=== PATIENT | female | born 1965 | race Caucasian/White ===

== ENCOUNTER → 2016-12-25 | Outpatient (CLI) | payer BC ==
[~2016-12-25] MED LIST: AMOX875T PO; ESCI10TA17 PO
--- NOTE | 2016-12-25 11:53 | DIAGNOSTIC IMAGING REPORT ---
CHEST CT WITHOUT CONTRAST CT DOSE: 378.76 mGycm HISTORY: Follow-up pulmonary nodule. TECHNIQUE: Multiaxial CT images of the chest were performed without contrast. COMPARISON: Chest CT 07/12/2016. FINDINGS: The central airways are patent. No pleural effusions. No pneumothorax. Stable 6 mm nodular density within the right middle lobe on image 178. Therefore, this demonstrates greater than 2 year stability and is considered to be benign. Bibasilar linear densities favor subsegmental atelectasis are scarring. No pneumothorax. No pleural effusions. Mild emphysema. Faint groundglass densities within the right upper lobe posteriorly and superior segments of the bilateral lower lobes may be due to mild dependent change. The visualized liver, spleen, and adrenal glands are unremarkable. Small fat-containing left-sided Bochdalek hernia. No mediastinal or hilar lymphadenopathy. The heart is normal in size. Stable 12 mm low-density lesion within the left breast. The long-term stability favors a benign lesion. IMPRESSION: 1. Stable 6 mm nodular density within the right middle lobe. This demonstrates greater than 2 year stability and is considered to be benign. 2. Stable 12 mm low-density nodule within the left breast. This is also likely benign given the long-term stability. Electronically signed by: Tobi Cancino M.D. 12/25/2016 11:51 AM Dictated Date/Time: 12/25/2016 11:43 AM
== END | disposition home or self-care (01) ==
LOC: C.CTS 11:10
PROVIDERS: ATTEND Internal Medicine
DX: R91.1 Solitary pulmonary nodule (principal)

== ENCOUNTER → 2017-01-15 | Outpatient (CLI) | payer BC ==
[~2017-01-15] MED LIST changes: -AMOX875T PO
[2017-01-15 10:53] LABS: BASO % 0.6 %; BASO ABS # 0.04 K/uL (0-0.2); COMPLETE YES; EOS % 3.6 %; HEMATOCRIT 46.3 % (37-47); IG% 0.1 %; LYMPH % 21.7 %; LYMPH ABS # 1.49 K/uL (1.2-3.4); MEAN CELL VOLUME 94.7 fL (80-100); MEAN CORPUSCULAR HEMOGLOBIN 30.7 pg (25-34); MEAN CORPUSCULAR HGB CONC 32.4 g/dl (32-36); MEAN PLATELET VOLUME 10.7 fL (7.4-10.4); MONO % 10.9 %; NEUT % 63.1 %; PLATELET COUNT 301 K/uL (130-400); RED BLOOD COUNT 4.89 M/uL (4.2-5.4); WHITE BLOOD COUNT 6.88 K/uL (4.8-10.8)
[2017-01-15 11:11] LABS: ESTIMATED AVERAGE GLUCOSE 111 mg/dl; HA1C FLAG Normal (Normal)
[2017-01-15 11:19] LABS: CALCIUM 9.8 mg/dl (8.5-10.1)
[2017-01-15 11:28] LABS: ALT/SGPT 24 U/L (12-78); AST/SGOT 15 U/L (15-37); BLOOD UREA NITROGEN 14 mg/dl (7-18); BUN/CREATININE RATIO 19.3 (10-20); CARBON DIOXIDE 32 mmol/L (21-32); CHLORIDE 106 mmol/L (98-107); CHOLESTEROL 236 mg/dl (0-200); CREATININE 0.72 mg/dl (0.60-1.20); GLUCOSE 107 mg/dl (70-99); POTASSIUM 4.5 mmol/L (3.5-5.1); SODIUM 142 mmol/L (136-145); TRIGLYCERIDES 56 mg/dl (0-150); VERY LOW DENSITY LIPOPROT CALC 11 mg/dl
[2017-01-15 11:37] LABS: ALB/GLOB RATIO 1.1 (0.9-2); ALKALINE PHOSPHATASE 65 U/L (45-117); CHOLESTEROL/HDL RATIO 2.5; HDL CHOLESTEROL 96 mg/dl; LDL CHOLESTEROL CALCULATED 129 mg/dl
== END | disposition home or self-care (01) ==
LOC: C.LABBC 09:04
PROVIDERS: ATTEND Internal Medicine
DX: F32.9 Major depressive disorder, single episode, unspecified (principal); Z11.59 Encounter for screening for other viral diseases

== ENCOUNTER → 2017-01-28 | Day surgery (SDC) | payer BC ==
[2017-01-09 11:33] VITALS: Ht 165.1 cm; Wt 79.5 kg
[~2017-01-28] VITALS: Ht 165.1 cm; Wt 79.5 kg
[~2017-01-28] MED LIST changes: +ATROPINE SULFATE 0.1 MG/ML 5ML SYR IV PRN; +DEXAMETHASONE SOD INJ 4 MG/ML VIAL ONE; +EpHEDrine SULFATE INJ 50 MG/ML AMP IV PRN; +FENTANYL CITRATE INJ 50 MCG/1 ML 2 ML VIAL IV PRN; +FENTANYL CITRATE INJ 50 MCG/1 ML 2 ML VIAL ONE; +FLUMAZENIL 0.1 MG/1 ML 10 ML VIAL IV PRN; +HYDROmorphone INJ 2 MG/ML SYR/VIAL IV PRN; +IBUPROFEN 200 MG TAB ONE; +IBUPROFEN 600 MG TAB PO PRN; +KETOROLAC TROMETHAMINE 30 MG/ML VIAL IV. PRN; +LABETALOL HCL IV 5 MG/ML 20ML IV PRN; +LACTATED RINGER'S 1000ML 1,000 ML IV SCH; +LIDOCAINE HCL 2% 2 ML VIAL (20MG/ML) ONE; +MEPERIDINE HCL 25 MG/ML CARP IV PRN; +METOCLOPRAMIDE HCL INJ 5 MG/ML 2 ML VIAL IV PRN; +MIDAZOLAM HCL 1 MG/ML 2ML VIAL ONE; +NALOXONE HCL 0.4 MG/1 ML VIAL/CARP IV PRN; +ONDANSETRON INJ 2 MG/ML 2 ML VIAL IV PRN; +ONDANSETRON INJ 2 MG/ML 2 ML VIAL ONE; +OXYCODONE/ACETAMINOPHEN 5-325 TAB PO PRN; +PHENYLEPHRINE 100MCG/ML 5ML SYR IV PRN; +PROPOFOL IV EMULSION 10 MG/ML 20 ML VIAL IV ONE; +SODIUM CHLORIDE 0.9% 1000ML 1,000 ML IV SCH
--- NOTE | 2017-01-28 06:47 | History & Physical Bridge - SC ---
H&P Re-Evaluation Bridge Note: I have examined the patient, reviewed the History & Physical and in the interval since the performance of the History & Physical I have noted the following changes of clinical significance: No changes noted
--- NOTE | 2017-01-28 06:49 | Discharge Instructions-SurgCtr ---
Discharge Instructions Date of Service January 28, 2017. Visit Reason for Visit: Post Menopausal Bleeding Discharge Discharge Diagnosis / Problem: Hysteroscopy Discharge Goals Goal(s): Specific goals Activity Recommendations Activity Limitations: per Instructions/Follow-up section Anesthesia . Post Anesthesia Instructions: If you have had General Anesthesia or IV Sedation: * Do not drive today. * Resume driving when surgeon permits. * Do not make important decisions or sign legal documents today. * Call surgeon for: 1. Temperature elevations greater than 101 degrees F. 2. Uncontrollable pain. 3. Excessive bleeding. 4. Persistent nausea and vomiting. 5. Medication intolerance (nausea, vomiting or rash). * For nausea and vomiting use only clear liquids such as: tea, soda, bouillon until nausea subsides, then gradually increase diet as tolerated. * If you have any concerns or questions, call your surgeon's office. If physician is unavailable and it is an emergency, call 911 or go to the nearest emergency room. . Instructions / Follow-Up Instructions / Follow-Up ACTIVITY RECOMMENDATIONS: * Avoid tampons, douching, hot tubs, pools, and intercourse until bleeding has stopped. * May shower as usual. * No strenuous activity for 24-48 hours. After 24-48 hours, you may do anything you feel like doing (driving and sports are okay). SPECIAL CARE INSTRUCTIONS: Special Diet: * Mild nausea may occur in the immediate post-operative period. * Take clear liquids such as tea, cola or bouillon until all nausea has subsided; you may then resume your normal diet. Special Care: * Light bleeding and vaginal spotting can last from a few days to 3-4 weeks. Call your doctor if bleeding becomes heavier than the heaviest part of your period. * Check your temperature twice a day for one week. If it goes above 100.4 degrees Fahrenheit (38.0 Celsius), notify your doctor. * Call your doctor's office for an appointment for 6 weeks after your surgery. FOLLOW-UP VISIT: Call your doctor's office for an appointment for 6 weeks after your surgery. Diet Recommendations Home Diet: resume previous diet Pending Studies Studies pending at discharge: no Medical Emergencies . Who to Call and When: Medical Emergencies: If at any time you feel your situation is an emergency, please call 911 immediately. . Non-Emergent Contact Non-Emergency issues call your: Primary Care Provider . . "Provider Documentation" section prepared by Estelita Orozco. .
--- NOTE | 2017-01-28 07:34 | [facility] Post Operative Brief Note ---
Immediate Operative Summary Operative Date January 28, 2017. Pre-Operative Diagnosis Post Menopausal Bleeding Post-Operative Diagnosis Same Procedure(s) Performed Dilatation And Curettage, Hysteroscopy, Polypectomy Surgeon Dr. Orozco Finished Hardware Erector Surgeon(s) None Estimated Blood Loss 10 mL Findings Large singular polyp filling endometrial cavity. Ostia seen bilaterally. Fluid deficit at end of case = 0ml. Specimens A. Endometrial Curettings and Polyp Complication(s) None Disposition Recovery Room / PACU
--- NOTE | 2017-01-28 08:03 | Anesthesia Progress Nt - [facility] ---
Anesthesia Post Op Note Date & Time January 28, 2017 at 08:03 Vital Signs Pain Intensity: 0 Vital Signs Past 12 Hours Date Time Temp Pulse Resp B/P Pulse Ox O2 Delivery O2 Flow Rate FiO2 01/28/17 07:51 66 16 01/28/17 07:51 68 16 95 01/28/17 07:50 152/86 01/28/17 07:46 59 12 01/28/17 07:46 59 12 100 01/28/17 07:45 143/78 01/28/17 07:41 64 16 100 01/28/17 07:41 61 16 01/28/17 07:40 64 20 129/91 100 01/28/17 07:40 64 20 01/28/17 07:35 62 20 144/77 99 01/28/17 07:35 62 20 01/28/17 07:35 36.3 59 16 144/77 98 Mask 6 01/28/17 06:34 36.5 71 16 122/70 98 Room Air Notes Mental Status: alert / awake / arousable, participated in evaluation Pt Amnestic to Procedure: Yes Nausea / Vomiting: adequately controlled Pain: adequately controlled Airway Patency, RR, SpO2: stable & adequate BP & HR: stable & adequate Hydration State: stable & adequate Anesthetic Complications: no major complications apparent
[2017-01-28 08:16] VITALS: TEMP 36.4
[2017-01-28 08:41] VITALS: BP 119/78; PULSE 73; O2SAT 95
--- NOTE | 2017-01-28 10:14 | OPERATIVE REPORT ---
DATE OF OPERATION: 01/28/2017 PREOPERATIVE DIAGNOSIS: Postmenopausal bleeding. POSTOPERATIVE DIAGNOSIS: Same. PROCEDURE: D\T\C, hysteroscopy with polypectomy. SURGEON: Dr. Estelita Orozco. ASSIST: None. ESTIMATED BLOOD LOSS: 10 mL. FINDINGS: A large singular polyp filling the endometrial cavity. Ostia were seen bilaterally and the fluid deficit at the end of the case was 0 mL. SPECIMENS: Endometrial curettings and polyp. COMPLICATIONS: None. DISPOSITION: Stable to recovery room. DESCRIPTION OF PROCEDURE: Simi was placed on the table in the dorsal lithotomy position with candy-cane stirrups, prepped and draped in standard sterile fashion and a hard time-out was taken prior to proceeding. The bladder was straight catheterized for approximately 5 mL of clear yellow urine. It is noted that the patient had voided shortly before being brought back to the operating room. Specula were placed in the anterior lip of the cervix was grasped with a single-tooth tenaculum. The cervix was then serially dilated to a 23-Cymraes. During dilation, the patient was noted to have a vagal response. All dilators and instruments were removed briefly to allow recovery of the patient's vital signs. When the instruments were placed and dilation proceeded, the patient tolerated this well. The 5 mm hysteroscope was then introduced. Ostia was seen on the right side of the endometrial cavity and a large singular polyp was seen filling the cavity and at least at this point was blocking the left ostium. The scope was withdrawn and polyp forceps were introduced. The polyp was grasped and retrieved largely in 1 piece; however, several additional bits were also extracted. The sharp curette was then used to curette all dawkins of the uterus. The scope was briefly reintroduced and a small stump of the polyp remained. The scope was then withdrawn and one last grasp the polyp forceps, did retrieve that stock. On the last look with the hysteroscopy, the ostia were visible bilaterally and the cavity was seen to have been restored to normal MD shape. All instruments were then withdrawn and the patient was transferred in stable condition to the PACU. EBL was 10 mL and the fluid deficit for this case was 0 mL. I attest to the content of the Intraoperative Record and any orders documented therein. Any exceptio ns are noted below.
== END | disposition home or self-care (01) ==
LOC: X.SURG 06:22
PROVIDERS: ATTEND Obstetrics & Gynecology
DX: N84.0 Polyp of corpus uteri (principal); N95.0 Postmenopausal bleeding; F32.9 Major depressive disorder, single episode, unspecified; E03.9 Hypothyroidism, unspecified; G47.33 Obstructive sleep apnea (adult) (pediatric); Z82.49 Family history of ischemic heart disease and other diseases of the circulatory system; Z72.0 Tobacco use; Z87.891 Personal history of nicotine dependence

== ENCOUNTER → 2017-09-01 | Outpatient (CLI) | payer BC ==
[~2017-09-01] MED LIST changes: -ATROPINE SULFATE 0.1 MG/ML 5ML SYR IV PRN; -DEXAMETHASONE SOD INJ 4 MG/ML VIAL ONE; -EpHEDrine SULFATE INJ 50 MG/ML AMP IV PRN; -FENTANYL CITRATE INJ 50 MCG/1 ML 2 ML VIAL IV PRN; -FENTANYL CITRATE INJ 50 MCG/1 ML 2 ML VIAL ONE; -FLUMAZENIL 0.1 MG/1 ML 10 ML VIAL IV PRN; -HYDROmorphone INJ 2 MG/ML SYR/VIAL IV PRN; -IBUPROFEN 200 MG TAB ONE; -IBUPROFEN 600 MG TAB PO PRN; -KETOROLAC TROMETHAMINE 30 MG/ML VIAL IV. PRN; -LABETALOL HCL IV 5 MG/ML 20ML IV PRN; -LACTATED RINGER'S 1000ML 1,000 ML IV SCH; -LIDOCAINE HCL 2% 2 ML VIAL (20MG/ML) ONE; -MEPERIDINE HCL 25 MG/ML CARP IV PRN; -METOCLOPRAMIDE HCL INJ 5 MG/ML 2 ML VIAL IV PRN; -MIDAZOLAM HCL 1 MG/ML 2ML VIAL ONE; -NALOXONE HCL 0.4 MG/1 ML VIAL/CARP IV PRN; -ONDANSETRON INJ 2 MG/ML 2 ML VIAL IV PRN; -ONDANSETRON INJ 2 MG/ML 2 ML VIAL ONE; -OXYCODONE/ACETAMINOPHEN 5-325 TAB PO PRN; -PHENYLEPHRINE 100MCG/ML 5ML SYR IV PRN; -PROPOFOL IV EMULSION 10 MG/ML 20 ML VIAL IV ONE; -SODIUM CHLORIDE 0.9% 1000ML 1,000 ML IV SCH
--- NOTE | 2017-09-02 07:43 | SPLIT NIGHT TECHNICIAN REPORT ---
[facility] Split Night Polysomnogram - [employer]fd[employer] Technical Architect Report Study date: 09/01/2017 Referring Physician: DR. Charity STEPHEN Name: MACK ELIZALDE [employer] Technical Architect: Ashley Navarro, PSGT. Date of : 1965 Height: 52 years, Height 5' 5" Sex: Female Weight: 180 lbs Age: 52 Neck Circum:13 inches BMI: Medications: 29.95 Escitalopram Oxalate 10 mg. Patient History 52 yr. old female in room 5, presents to the sleep lab for a split night study. Pt. states that she had a sleep study years ago and wasn't able to tolerate the pressure. She had a AHI of 17.8, her pressure was 12 H2O.Pt. choose to try a mouth guard at that time, stopped using after dog had chewed multiple mouth guards. She states that she has snored for many years and feels much more tired during the day than she has in he past.Ess = 6, Neck= 13 inches. Parameters Monitored NPSG: E1-M2, E2-M1, Fp1-M2, Fp2-M1, F3-M2, F4-M2, F4-M1, C3-M2, C4-M2, C4-M1, O1-M2, O2-M2, O2-M1, T3-M2, T4-M1, P3-M2, P4-M1, CHIN1, CHIN2, HR, EKG, Legs, PFLOW, SNOR, FLOW, CFLOW, Tidal Volume, THOR, ABDO, SpO2, PLTH, CPRESS, ETCO2 Wave, ETCO2, pH SLEEP SUMMARY DATA DIAGNOSTIC TREATMENT Lights Out: 9:15:41 PM 1:42:41 AM Lights On: 1:34:11 AM 5:33:11 AM Total Recording Time (TRT): 258.5 min. 231.5 min. Total Sleep Time (TST): 134.0 min. 218.5 min. NREM Time: 134.0 min. 86.5 min. REM Time: 0.0 min. 132.0 min. Sleep Period Time (SPT): 184.0 min. 218.5 min. Sleep Efficiency (SE): 52 % 95 % Sleep Latency: 74.5 min. 12.0 min. Arousal Index: 78.4 9.1 PAP Treatment Levels: 4, 6, 7 * Optimal Pressure(s) SLEEP STAGING DATA DIAGNOSTIC TREATMENT Duration (min) TST % Duration (min) TST % Stage Wake: 124.5 min. -- 12.0 min. -- WASO: 50.0 min. -- 0.0 min. -- NREM: 134.0 min. 100 % 86.5 min. 40 % Stage N1: 22.5 min. 17 % 6.5 min. 3 % Stage N2: 111.5 min. 83 % 51.5 min. 24 % Stage N3: 0.0 min. 0 % 28.5 min. 13 % REM: 0.0 min. 0 % 132.0 min. 60 % POSITIONAL DATA Event Count Index Event Count Index Supine: 43 55.2 27 7.4 Supine NREM: 43 55.2 24 16.6 Supine REM: N/A N/A 3 1 Non-Supine: 87 59.8 N/A N/A Non-Supine NREM: 87 59.8 N/A N/A Non-Supine REM: N/A N/A N/A N/A AROUSAL SUMMARY DATA: Event Count Index Event Count Index Apnea Arousals: 2 1.3 0 0.3 Hypopnea Arousals: 76 34.0 9 2.5 Snore Arousals: 46 20.6 6 1.6 PLM Arousals: 2 0.9 0 0.0 Non-Specific Arousals: 45 20.1 18 4.9 Total Arousals: 175 78.4 33 9.1 MYOCLONUS (PLM) Event Count Index Event Count Index PLM: 27 12.1 6 1.6 PLM AROUSAL: 2 0.9 0 0.0 PLM W/O AROUSAL 27 12.1 6 1.6 PLM W/RESP EVENT 5 0.0 2 0.0 MYOCLONUS (PLM) Event Count Index Event Count Index LM: 8 39.9 20 5.5 LM AROUSAL: 8 3.6 0 0.0 LM W/O AROUSAL LM W/RESP EVENT LM NON SPECIFIC 74 33.1 20 5.5 HEART RATE DATA DIAGNOSTIC TREATMENT Sleep (bpm): 72 66 REM (bpm): N/A 93 NREM (bpm): 88 92 Tachycardia Count: 0 0 Tachycardia Duration: 0.00 0 Bradycardia Count: 0 0 Bradycardia Duration: 0.00 0 DIAGNOSTIC PORTION TREATMENT PORTION RESPIRATORY DATA Event Count Index Event Count Index AHI: -- 58.2 -- 7.4 RDI: -- 58.2 -- 7 Obstructive Apnea: 3 1.3 1 0.3 Central Apnea: 0 0.0 0 0.0 Mixed Apnea: 0 0.0 0 0.0 Hypopnea: 127 56.9 26 7.1 RERA: 0 0.0 0 0.0 Total Apneas: 3 1.3 1 0.3 RESPIRATORY DATA REM NREM SLEEP REM NREM SLEEP Supine Position: Obstructive Apneas: N/A 2 2 1 0 1 Central Apneas: N/A 0 0 0 0 0 Mixed Apneas: N/A 0 0 0 0 0 Hypopneas: N/A 41 41 2 24 26 RERA N/A 0 0 0 0 0 Total Supine Events: N/A 43 43 3 24 27 Supine AHI: N/A 55.2 55.2 1 16.6 7.4 Supine RDI: N/A 55.2 55.2 1.4 16.6 7.4 REM NREM SLEEP REM NREM SLEEP Non-Supine Position: Obstructive Apneas: N/A 1 1 N/A N/A N/A Central Apneas: N/A 0 0 N/A N/A N/A Mixed Apneas: N/A 0 0 N/A N/A N/A Hypopneas: N/A 86 86 N/A N/A N/A RERA N/A 0 0 N/A N/A N/A Total Supine Events: N/A 87 87 N/A N/A N/A Supine AHI: N/A 59.8 59.8 N/A N/A N/A Supine RDI: N/A 59.8 59.8 N/A N/A N/A OXYGEN DESTAURATION DATA: Event Count Index Event Count Index REM Desaturations: N/A N/A 7 3.2 NREM Desaturations: 211 94.5 31 21.5 SNORE DATA DIAGNOSTIC TREATMENT Snore Time: 19.7 1:54:41 AM Snore TST%: 9 7 Snore Arousal Count: 46 6 Snore Arousal Index: 20.6 1.6 Desaturation Event Summary: Minimum %SpO2 Event Count Mean/Min/Max Duration(sec.) Desaturation Index % Time In Bed > 90 228 24.9 / 6.5 / 58.3 48.1 58.9 86 - 90 60 18.3 / 4.8 / 45.3 25.4 29.4 81 - 85 1 4.8 / 4.8 / 4.8 1.3 9.9 76 - 80 0 N/A 0.0 1.7 71 - 75 0 N/A 0.0 0.0 66 - 70 0 N/A 0.0 0.0 61 - 65 0 N/A 0.0 0.0 56 - 60 0 N/A 0.0 0.0 51 - 55 0 N/A 0.0 0.0 < 50 0 N/A 0.0 0.0 OXYGEN SATURATION DATA DIAGNOSTIC TREATMENT SpO2 Mean Sleep: 88 % 93 % SpO2 Mean REM: N/A % 93 % SpO2 Mean NREM: 88 % 92 % SpO2 Minimum Sleep: 75 % 80 % SpO2 Minimum REM: N/A % 83 % SpO2 Minimum NREM: 75 % 80 % Time Below 90% (TST): 74.6 20.0 Time Below 88% (TST): 55.3 10.8 Total REM NREM Awake <50% 0.0 min. 0.0 min. 0.0 min. 0.0 min. 51 - 60% 0.0 min. 0.0 min. 0.0 min. 0.0 min. 61 - 70% 0.0 min. 0.0 min. 0.0 min. 0.0 min. 71 - 80% 8.3 min. 0.0 min. 5.2 min. 3.1 min. 81 - 90% 189.7 min. 10.5 min. 100.5 min. 78.6 min. 91 - 100% 284.1 min. 120.7 min. 111.7 min. 51.8 min. Average 91 93 90 90 Minimum SpO2 75 83 75 76 Desaturation Event Index 30.6 3.2 65.9 0.0 # Desat. Events below 89% 240 7 233 0 Time(%) with Saturation below 89% 24.2 0.8 15.8 7.7 Time(min.) with Saturation below 89% 116.8 3.6 76.2 37.0 Recording [employer] Technical Architect Comments: Split -Night: MS. Elizalde slept in the left, positions. No cardiac arrhythmia or PLM's noted. No bruxism noted. Snoring was noted and scored as a 4 on a scale of 1 through 5. (0=no snoring, 5=snoring loud enough to be heard through a closed door or down the mann way) At 1:34 am, MS. Elizalde has met specific Split-Night criteria during the diagnostic portion of this study. CPAP was initiated at +4 CMH2O and up-titrated to an optimal level of +7 CMH2O, which nearly eliminated all respiratory events and snoring. A F & P medium Simplus, was used during titration Ms. Elizalde awoke to use the restroom zero times during the night. Ms. Elizalde stated, I did not sleep as well as I do when I am in my own bed. The final report will be interpreted and signed by a sleep physician. The completed physician report will then be placed in the patient medical record. Patient tolerated treatment well, she was restless prior to treatment, once treatment was admistered she settled went into deep sleep and rem. Therapy Event: Therapy (cm H20) 0 4 6 7 Total Time at Pressure (min.) 258.5 37.4 62.4 130.7 TST at Pressure (min.) 134.0 25.4 62.4 130.7 # Periods 1 1 1 1 Sleep Onset (min.) 74.5 12.0 0.0 0.0 REM Onset (min.) N/A N/A 8.6 0.0 Sleep Efficiency % 51 67 100 100 Wakefulness (%) 48.2 32.1 0.0 0.0 Wakefulness (min.) 124.5 12.0 0.0 0.0 NREM 1 (%) 8.7 12.0 0.0 1.5 NREM 1 (min.) 22.5 4.5 0.0 2.0 NREM 2 (%) 43.1 55.9 9.8 18.7 NREM 2 (min.) 111.5 20.9 6.1 24.5 NREM 3 (%) 0.0 0.0 4.0 19.9 NREM 3 (min.) 0.0 0.0 2.5 26.0 REM (%) 0.0 0.0 86.2 59.8 REM (min.) 0.0 0.0 53.8 78.2 # Arousals 175 20 5 8 Arousal Index 78.4 47.2 4.8 3.7 # Snore 681 179 526 62 Snore Index 304.9 422.7 505.6 28.5 AHI 58.2 52.0 3.8 0.5 AHI Supine 55.2 52.0 3.8 0.5 AHI Non-Supine 59.8 N/A N/A N/A NREM AHI 58.2 52.0 14.0 0.0 REM AHI N/A N/A 2.2 0.8 RDI 58.2 52.0 3.8 0.5 # Obstructive 3 0 0 1 # Central Ap 0 0 0 0 # Mixed 0 0 0 0 # Hypopneas 127 22 4 0 RERAS 0 0 0 0 Total Respiratory Events 130 22 4 1 Time Below SpO2 89.00% (min.) 64.8 8.6 6.5 0.0 Mean NREM SpO2 (%) 88 90 89 93 Mean REM SpO2 (%) N/A N/A 92 94 Mean Sleep SpO2 (%) 88 90 92 94 Min NREM SpO2 (%) 75 80 80 91 Min REM SpO2 (%) N/A N/A 83 91 Position Supine (min.) 46.7 25.4 62.4 130.7 Position Non-supine (min.) 87.3 0.0 0.0 0.0 LM Index Sleep 51.9 37.8 5.8 1.8 LM Index NREM 51.9 37.8 14.0 4.6 LM Index REM N/A N/A 4.5 0.0 Mean Heart Rate (bpm) 72 66 69 65 Min Heart Rate (bpm) 53 57 54 52
--- NOTE | 2017-09-03 00:23 | POLYSOMNOGRAPH REPORT ---
CLINICAL DATA: A 52-year-old female with a BMI of 30, referred by Dr. John Sherwood, for a split night study. She had a previous sleep study which showed moderate sleep apnea with an AHI of 17.8 and her pressure was 12 cm of water pressure. She had difficulty using it. She then tried an oral appliance, but stopped using that. She has snored for years and feels more tired during the day than in the past. This was a split night study. SLEEP ARCHITECTURE: For the diagnostic portion of the study, sleep period was 184.0 minutes. Total sleep time was 134 minutes, all non-REM sleep. Sleep latency was delayed at 74.5 minutes. Sleep efficiency was reduced at 52%. Sleep consisted of stage N1 17%, stage N2 83%. For the treatment portion of the study, sleep period time was 218.5 minutes. Total sleep time was 218.5 minutes, divided between 132 minutes of REM sleep and 86.5 minutes of non-REM sleep. Sleep onset latency was 12 minutes. Sleep efficiency was 95%. Sleep consisted of stage N1 3%, stage N2 24%, stage N3 13%, and REM 60%. This suggests REM rebound. AROUSAL DATA: Prior to treatment, 175 limb movements during sleep were noted for an index of 78.4 per hour. During treatment, 33 limb movements during sleep were noted for an index of 9.1 per hour. PLM DATA: Prior to treatment, 74 limb movements during sleep were noted for an index of 33.1 per hour. During treatment, 20 limb movements during sleep were noted for an index of 5.45 per hour. EKG: Heart rates ranged from 66 to 93 beats per minute. No arrhythmias were noted. RESPIRATORY DATA: Severe sleep apnea was diagnosed prior to treatment. The diagnostic AHI was 58.2. There were 3 obstructive apneic episodes and 127 hypopneic episodes were recorded prior to treatment. The mean AHI during treatment was 7.4. There was 1 obstructive apneic episode and 26 hypopneic episodes recorded. OXIMETRY DATA: Nocturnal hypoxemia was seen prior to treatment. Oxygen reinaldo 75% during non-REM sleep prior to treatment. Mean saturation with the treatment was 93%. MILK PASTEURIZER'S COMMENTS AND TREATMENT SUMMARY: The patient slept in the left position. Snoring was severe, rated 4 on a scale of 1-5. At 1:34 a.m., the patient met split night criteria. A [employer] medium Simplus mask was used. She was started on CPAP and titrated up to her final pressure of 7 cm water pressure. At her final pressure setting, she slept for 131 minutes with an AHI of 0.5. IMPRESSION: Severe sleep apnea/hypopnea with a diagnostic AHI of 58.2 with nocturnal hypoxemia corrected with CPAP 7 cm of water pressure,using a [employer] medium Simplus mask. The central office technician noted that the patient was pretty restless prior to treatment and once treatment was started, she settled and went into a deep sleep in REM. RECOMMENDATIONS: The patient should be started on the above-noted treatment regimen and seen back in followup within 90 days to document efficacy and compliance. JOSE DE JESUSD
== END | disposition home or self-care (01) ==
LOC: C.NEUR 20:00
PROVIDERS: ATTEND Internal Medicine
DX: G47.33 Obstructive sleep apnea (adult) (pediatric) (principal)

== ENCOUNTER 2022-11-22 12:55 | Inpatient (IN) ==
[2022-11-22 15:04] LABS: Basophils # (auto) 0.05 K/uL (0-0.2); Basophils % (auto) 0.3 %; Eosinophils # (auto) 0.08 K/uL (0-0.50); Eosinophils % (auto) 0.5 %; Hematocrit (blood only) 43.6 % (37.0-47.0); Hemoglobin 14.5 g/dl (12.0-16.0); Immature Granulocytes # (auto) 0.07 K/uL (0.01-0.20); Immature Granulocytes % (auto) 0.4 %; Lymphocytes # (auto) 1.34 K/uL (1.2-3.4); Lymphocytes % (auto) 8.5 %; Mean Corpuscular Hemoglobin 30.5 pg (25.0-34.0); Mean Corpuscular Hgb Conc 33.3 g/dL (32.0-36.0); Mean Corpuscular Volume 91.6 fL (80.0-100.0); Mean Platelet Volume 11.1 fL (9.4-12.4); Monocytes % (auto) 8.2 %; Neutrophils # (auto) 12.97 K/uL (1.40-6.50); Neutrophils % (auto) 82.1 %; Platelet Count 266 K/uL (130-400); RDW Coefficient of Variation 13.2 % (11.5-14.5); RDW Standard Deviation 44.6 fL (36.4-46.3); Red Blood Count 4.76 M/uL (4.20-5.40); White Blood Count 15.81 K/ul (4.8-10.8)
[2022-11-22 15:34] LABS: Albumin Globulin Ratio 1.3 (0.9-2); Albumin Level 4.3 gm/dl (3.4-5.0); BUN Creatinine Ratio 15.4 (10-20); Bilirubin,Total 0.7 mg/dl (0.2-1.0); Creatinine Clr Calc Pharmacy 84.6 ml/min; Est GFR (African American) 96.4 ml/min; Est GFR (Non-African American) 83.2 ml/min; Globulin 3.3 gm/dl (2.5-4.0); Total Protein 7.6 gm/dl (6.0-8.3)
[2022-11-22] MEDS ORDERED: levoFLOXacin/D5W 750 MG/150 ML BAG IV STA (16:16)
[2022-11-22] MEDS ORDERED: metroNIDAZOLE 500 MG/100 ML BAG IV STA (16:16)
--- NOTE | 2022-11-22 16:18 | Emergency Department Note ---
History of Present Illness General Chief complaint: Abnormal Labs/Diagnostic Testing Stated complaint: CT SCAN ABNORMAL Time Seen by Provider: 11/22/22 16:00 Source: patient, RN notes reviewed and old records reviewed (I have reviewed the outpatient CT report which was abnormal) Mode of arrival: ambulatory Limitations: no limitations History of Present Illness Maximum Pain Intensity: 7 This patient 57-year-old female who comes in after having facial swelling. It started on Saturday mostly on the right side she says she has an ulcer under her tongue. She did have an appendectomy 10 days ago in [place] and had general anesthesia then. She said it started and more swollen since Saturday it started on the right side and outs both sides she is markedly swollen under her jaw. She has no dental pain no drainage denies shortness of breath or nausea vomiting she has had a sore throat but her pain is not as bad as it was yesterday denies no fever no sick contacts no trauma or injury no abdominal pain. She tells me she is allergic to Bactrim and which is listed in her chart but she also tells me she had facial swelling as a child when she had amoxicillin Home Medications Medication Instructions Recorded Confirmed Type cholecalciferol (vitamin D3) 125 125 mcg PO DAILY 12/06/20 11/22/22 History mcg (5,000 unit) capsule rosuvastatin 5 mg tablet 5 mg PO DAILY #30 tabs 08/28/22 11/22/22 Rx venlafaxine 75 mg capsule,extended 75 mg PO DAILY 11/22/22 11/22/22 History release 24 hr Allergies Allergy/AdvReac Type Severity Reaction Status Date / Time Bactrim Allergy Severe N/V/D + Verified 01/28/17 06:33 SEVERE RASH AND SHOCK Penicillins Allergy Severe Facial Verified 11/22/22 16:56 swelling as a child Sulfa (Sulfonamide Allergy Severe N/V/D + Verified 11/22/22 16:56 Antibiotics) SEVERE RASH AND SHOCK sulfamethoxazole Allergy Severe N/V/D + Verified 11/22/22 16:56 SEVERE RASH AND SHOCK trimethoprim Allergy Severe N/V/D + Verified 11/22/22 16:56 SEVERE RASH AND SHOCK bupropion AdvReac Severe Fatigued Verified 11/22/22 16:56 Past Med/Surg History Medical History Depression Elevated HDL Hyperlipidemia Impaired glucose metabolism Severe obstructive sleep apnea Surgical History History of breast surgery breast biopsy 2002 calcificaitons History of colonoscopy History of dilation and curettage x2 Family History Mother Stroke Other Hypertension Denies family history of Ovarian cancer Prostate cancer Myocardial infarction Breast cancer Colorectal cancer Social History Smoking Status: Former smoker Tobacco Type: Cigarettes Second Hand Exposure: No; Do You Dip or Chew Tobacco: No; Tobacco Cessation Education Requested by Patient: No Hx Alcohol Use: Yes Alcohol type: wine Alcohol Intake Frequency: 2-3 x/Week Alcohol Intake Frequency Comment: 2-3/ week Hx Substance Use: No Preferred Language: Slovak Communication Ability: Effective Visual Impairment: No Limitations Hearing Ability: Normal Photogrammetric Tech Required: No Beliefs That Will Affect Care: None marital status: Current Living Situation: Spouse current occupational status: employed Other Information That Helps Us Care for You: No Feels Safe at Home: Yes Safety Concerns: Feels Safe At This Time Childhood Exposure to Second-Hand Smoke: Yes caffeine: Yes Dental Care, Regularly: Yes Physical Activity Frequency: 3-4 Times per Week Seatbelt Use: always Sunscreen Use: Yes Assistive Devices: Glasses Immunizations: Past med historydenies diabetes, cardiac disease. She is on no blood thinners Social historydoes not smoke. Drinks socially. Denies drug use Review of Systems A total of 10 systems reviewed and were otherwise negative Physical Exam Vital Signs Vital Signs - 24 hr 11/22/22 13:15 11/22/22 15:59 11/22/22 17:35 Temperature 36.7 C Temperature Source Temporal Artery Scan Pulse Rate 87 Pulse Rate [Right Radial] 86 96 H Pulse Rhythm Regular Pulse Rhythm [Right Radial] Regular Regular Pulse Strength Normal Pulse Strength [Right Radial] Normal Normal Respiratory Rate 22 18 20 Respiratory Effort / Characteristics Non-Labored Spontaneous Non-Labored Spontaneous Non-Labored Spontaneous Respiratory Depth Normal Normal Normal Respiratory Pattern Regular Regular Regular Blood Pressure 130/84 Blood Pressure [Right Arm] 166/104 H 177/112 H Blood Pressure Mean 99 Blood Pressure Mean [Right Arm] 124 133 Blood Pressure Position Sitting Blood Pressure Position [Right Arm] Sitting Sitting Pulse Oximetry 99 98 100 Oxygen Delivery Method Room Air Room Air Room Air Sepsis Recent Fever Within 48 Hours No Sepsis New/Unexplained Change in Mental Status No Sepsis Action Taken by Nursing No Action Required General: Well developed well nourished middle-age female who has marked swelling under her jaw but otherwise in no acute distress, breathing comfortably on room air. Normal speech, she has no muffling of her voice. HEENT: Normal cephalic atraumatic. Pupils are equal round and reactive to light. Extraocular movements are intact. Oropharynx is pink with moist mucous membranes. No swelling of the mouth lips or tongue. Marked swelling and tenderness under her lower jaw however when I look at the floor the mouth is not protruding. She has a small ulcer under her tongue. She does have a moderate amount of trismus. The posterior oropharynx appears wide open. Neck: Supple with a midline trachea. No meningeal signs or stiffness, no JVD or bruits. No Stridor. Chest: Clear to auscultation bilaterally. No wheezes or rhonchi. No increased work of breathing. Heart: Regular rate and rhythm without murmurs or gallops. Abdomen: Soft nontender, nondistended without rebound guarding or rigidity. Extremities: No cyanosis clubbing or edema. No calf tenderness or assymetry Spine/Back. Non tender to palpation. No CVA tenderness Skin: Good turgor without rashes. Neurologic exam: Cranial nerves two through 12 are intact. Motor and sensation are intact and symmetrical throughout. Course Administered Medications Acetaminophen (Acetaminophen 325 Mg Tab) 650 mg PO Q4H PRN PRN Reason: Pain or Fever Stop: 12/22/22 20:47 Last Admin: 11/22/22 21:10 Dose: 650 mg Documented By: SABRINA Parenteral Electrolytes (Normosol-R) 1,000 mls @ 125 mls/hr IV .Q8H MALACHI Stop: 11/23/22 20:47 Last Admin: 11/22/22 21:22 Dose: 125 mls/hr Documented By: SABRINA Discontinued Medications Levofloxacin/Dextrose (Levaquin/D5w) 750 mg in 150 mls @ 100 mls/hr IV NOW STA Stop: 11/22/22 17:45 Last Infusion: 11/22/22 19:13 Dose: 0 mls/hr Documented By: Admin: 11/22/22 16:57 Dose: 100 mls/hr Documented By: DAYTON Metronidazole (Flagyl) 500 mg in 100 mls @ 100 mls/hr IV NOW STA Stop: 11/22/22 17:15 Last Infusion: 11/22/22 19:13 Dose: 0 mls/hr Documented By: Admin: 11/22/22 17:45 Dose: 100 mls/hr Documented By: BARRON Sodium Chloride (Nss 1000ml) 1,000 mls @ 125 mls/hr IV .Q8H MALACHI Stop: 12/22/22 17:44 Last Infusion: 11/22/22 22:39 Dose: 0 mls/hr Documented By: Admin: 11/22/22 17:45 Dose: 125 mls/hr Documented By: BARRON Ioversol (Optiray 350 100ml) 86 ml IV ONCE ONE Stop: 11/22/22 16:39 Last Admin: 11/22/22 16:39 Dose: 86 ml Documented By: YOVANA Medical Decision Making Differential Diagnosis Abscess, ENT or odontogenic infection, Ludewig's angina, airway compromise, sepsis, cellulitis Medical Records Attestation: I reviewed the patient's medical records. Home Medications Current Medication List: was personally reviewed by me Laboratory Data Attestation: I reviewed the patient's lab results. 11/22/22 14:42 11/22/22 14:42 Lab Results 11/22/22 11/22/22 11/22/22 Range/Units 14:42 14:42 16:56 WBC 15.81 H (4.8-10.8) K/ul RBC 4.76 (4.20-5.40) M/uL Hgb 14.5 (12.0-16.0) g/dl Hct 43.6 (37.0-47.0) % MCV 91.6 (80.0-100.0) fL MCH 30.5 (25.0-34.0) pg MCHC 33.3 (32.0-36.0) g/dL RDW Std Deviation 44.6 (36.4-46.3) fL RDW Coeff of Dona 13.2 (11.5-14.5) % Plt Count 266 (130-400) K/uL MPV 11.1 (9.4-12.4) fL Immature Gran % (Auto) 0.4 % Neut % (Auto) 82.1 % Lymph % (Auto) 8.5 % Polk % (Auto) 8.2 % Eos % (Auto) 0.5 % Baso % (Auto) 0.3 % Neut # (Auto) 12.97 H (1.40-6.50) K/uL Lymph # (Auto) 1.34 (1.2-3.4) K/uL Polk # (Auto) 1.30 H (0.11-0.59) K/uL Eos # (Auto) 0.08 (0-0.50) K/uL Baso # (Auto) 0.05 (0-0.2) K/uL Immature Gran # (Auto) 0.07 (0.01-0.20) K/uL Sodium 140 (136-145) mmol/L Potassium 4.0 (3.5-5.1) mmol/L Chloride 104 (98-107) mmol/L Carbon Dioxide 30 (21-32) mmol/L Anion Gap 6 (3-11) BUN 12 (6-23) mg/dl Creatinine 0.78 (0.6-1.2) mg/dl Est Cr Clr Drug Dosing 84.6 ml/min Est GFR ( Amer) 96.4 ml/min Est GFR (Non-Af Amer) 83.2 ml/min BUN/Creatinine Ratio 15.4 (10-20) Glucose 134 H (70-99(Fasting)) mg/dl Calcium 10.0 (8.5-10.1) mg/dl Total Bilirubin 0.7 (0.2-1.0) mg/dl AST 14 (13-39) U/L ALT 13 (7-52) U/L Alkaline Phosphatase 74 (34-104) U/L Total Protein 7.6 (6.0-8.3) gm/dl Albumin 4.3 (3.4-5.0) gm/dl Globulin 3.3 (2.5-4.0) gm/dl Albumin/Globulin Ratio 1.3 (0.9-2) SARS-CoV-2, RNA, NAAT NEGATIVE (NEGATIVE) Imaging Data Attestation: I personally reviewed and interpreted this imaging study as follo ws: My Impression: CT soft tissue of the neck with IV contrast. I do see an abscess under the floor the mouth. Radiologist's Impression: Soft Tissue Neck CT 11/22/22 16:24 CT soft tissue neck w con CLINICAL HISTORY: eval for abscess Technique: Axial CT images of the soft tissues of the neck were obtained following intravenous administration of 100 cc of Omnipaque 300. Automated dose lowering techniques and/or adjustment according to patient size were utilized for this exam. CT DOSE: 450.42 mGy.cm Comparison: Comparison is made to CT soft tissue neck 11/22/2022 Findings: Compared to prior exam, there is rim enhancement of a irregular 39 x 28 mm submandibular fluid collection compatible with abscess. This lesion is noted to display the digastric muscles bilaterally. Regional lymphadenopathy is again seen measuring up to 14 mm in short axis. Soft tissue thickening and fat stranding are also noted in the area. Impression: Rim enhancement of the previously noted abnormality in the mouth floor compatible with abscess with reactive adenopathy. There may be overlying cellulitis. ACT 112: Negative or not required by law. Electronically signed by: Ike Bautista M.D. 11/22/2022 4:58 PM MDM Narrative This patient comes in as described above. She had outpatient CT which was markedly abnormal and showed a 4 x 3 x 2 cm locular abnormality in the neck. This could represent an abscess mass or ranula. Based on her presentation, I am concerned that Ludewig's angina however the tongue itself and under the tongue appears to be soft. She appears to be no airway compromise. IV access was established her white count is elevated blood work was obtained. I did COVID testing. She is allergic to sulfa and also think she is allergic to amoxicillin. I discussed antibiotic choice and consultation with Kristal, our ED pharmacist who recommended broad-spectrum with IV Levaquin and IV Flagyl. These were both given IV. I did consult Dr. Platt from ENT. She will be coming by and see the patient. She did recommend that we get a CAT scan with contrast. I did this. The patient did tolerate this well. The radiologist feels that this does represent an abscess as the Contrast is rim-enhancing at this point. Dr. Platt did see the patient in the emergency department and she also discussed the case with Dr. Denny. Dr. Denny actually feels this more of a orofacial issue and he is going to be the one to drain this. I have discussed the case with the medical team Dr. Conrad hough and he will be admitting her for IV antibiotics and further treatment and evaluation Impression & Plan Submental abscess, Facial swelling, Lab test negative for COVID-19 virus, Acute facial pain Discharge Plan Visit Data Chief Complaint: Abnormal Labs/Diagnostic Testing Stated Complaint: CT SCAN ABNORMAL ED Provider: Tate Meade Discharge Problem: Submental abscess, Facial swelling, Lab test negative for COVID-19 virus, Acute facial pain Patient Disposition: Admitted As Inpatient Discharge Instructions Interventions: ED Discharge Assessment Last Done: 11/22/22 20:18
[2022-11-22] MEDS ORDERED: OPTIRAY 350 100ml IV ONE (16:38)
--- NOTE | 2022-11-22 17:00 | CT Scan Report ---
CT soft tissue neck w con CLINICAL HISTORY: eval for abscess Technique: Axial CT images of the soft tissues of the neck were obtained following intravenous admini stration of 100 cc of Omnipaque 300. Automated dose lowering techniques and/or adjustment according t o patient size were utilized for this exam. CT DOSE: 450.42 mGy.cm Comparison: Comparison is made to CT soft tissue neck 11/22/2022 Findings: Compared to prior exam, there is rim enhancement of a irregular 39 x 28 mm submandibular fluid collec tion compatible with abscess. This lesion is noted to display the digastric muscles bilaterally. Filomena onal lymphadenopathy is again seen measuring up to 14 mm in short axis. Soft tissue thickening and fa t stranding are also noted in the area. Impression: Rim enhancement of the previously noted abnormality in the mouth floor compatible with abscess with r eactive adenopathy. There may be overlying cellulitis. ACT 112: Negative or not required by law. Electronically signed by: Ike Bautista M.D. 11/22/2022 4:58 PM
--- NOTE | 2022-11-22 17:43 | ENT Consultation ---
Date of Consultation November 22, 2022 Assessment & Plan (1) Submental abscess: Plan 57yF with recent intubation for appendectomy and new ulceration of R mandibular gingiva and 3.5cm abscess tracking into submental/submandibular space. No clinical evidence of a Saul's angina at this time. Airway widely patent on FFL. Case discussed with Dr. Denny of oral surgery, who will consult and treat. Please call with questions or issues. History of Present Illness Reason for Consultation: submental swelling History of Present Illness 57yF previously healthy s/p appendectomy 1 week ago now with progressive submental pain and swelling. Noted an ulcer to her R mandibular gingiva after surgery/intubation. Then developed progressive tenderness and edema of the sub mental region. Some pain with swallowing. No dysphonia, dyspnea. +trismus. Saw PCP and CT neck without contrast showed a large soft tissue lesion in the submental region. Sent to ED for further eval. WBC 15. CT neck with contrast per my read shows a 3.5cm abscess in the submental space tracking down from the R mandible through the sublingual space. Started on levaquin/flagyl. Allergies Allergy/AdvReac Type Severity Reaction Status Date / Time Bactrim Allergy Severe N/V/D + Verified 01/28/17 06:33 SEVERE RASH AND SHOCK Penicillins Allergy Severe Facial Verified 11/22/22 16:56 swelling as a child Sulfa (Sulfonamide Allergy Severe N/V/D + Verified 11/22/22 16:56 Antibiotics) SEVERE RASH AND SHOCK sulfamethoxazole Allergy Severe N/V/D + Verified 11/22/22 16:56 SEVERE RASH AND SHOCK trimethoprim Allergy Severe N/V/D + Verified 11/22/22 16:56 SEVERE RASH AND SHOCK bupropion AdvReac Severe Fatigued Verified 11/22/22 16:56 Home Medications Medication Instructions Recorded Confirmed Type cholecalciferol (vitamin D3) 125 125 mcg PO DAILY 12/06/20 11/22/22 History mcg (5,000 unit) capsule rosuvastatin 5 mg tablet 5 mg PO DAILY #30 tabs 08/28/22 11/22/22 Rx venlafaxine 75 mg capsule,extended 75 mg PO DAILY 11/22/22 11/22/22 History release 24 hr Patient History Medical History Depression Elevated HDL Hyperlipidemia Impaired glucose metabolism Severe obstructive sleep apnea Surgical History History of breast surgery breast biopsy 2003 calcificaitons History of colonoscopy History of dilation and curettage x2 Family History Mother Stroke Other Hypertension Denies family history of Ovarian cancer Prostate cancer Myocardial infarction Breast cancer Colorectal cancer Social History Smoking Status: Former smoker Tobacco Type: Cigarettes Second Hand Exposure: No; Hx Alcohol Use: Yes Alcohol type: wine Alcohol Intake Frequency: 2-3 x/Week Alcohol Intake Frequency Comment: 2-3/ week Hx Substance Use: No Preferred Language: Uzbek Communication Ability: Effective Visual Impairment: No Limitations Hearing Ability: Normal Coin Machine Operator Required: No marital status: Current Living Situation: Spouse current occupational status: employed Feels Safe at Home: Yes Childhood Exposure to Second-Hand Smoke: Yes caffeine: Yes Dental Care, Regularly: Yes Physical Activity Frequency: 3-4 Times per Week Seatbelt Use: always Sunscreen Use: Yes Review of Systems Review of Systems: A 10 point ROS is negative except as noted above Physical Exam Physical Exam: General: The patient is well-developed, well-nourished, and in no acute distress. Head and Face: Skull: No obvious deformities Salivary glands: The parotid and submandibular glands are normal in appearance and there are no masses on palpation. Facial strength: Facial motion is symmetric and without weakness. Eyes: Eyelids: There is no periorbital edema. Conjunctiva: There is no conjunctival erythema. Extraocular muscles: Extraocular movement is normal. Nystagmus: There is no nystagmus. Ears: Right auricle: The pinna is normally formed without skin lesion or mass. Left auricle: The pinna is normally formed without skin lesion or mass. Right EAC: There is no external auditory canal erythema, edema, lesion, or mass. Left EAC: There is no external auditory canal erythema, edema, lesion, or mass. Right TM/middle ear: TM is intact without perforation, flat, and translucent. The middle ear space is clear Left TM/middle ear: TM is intact without perforation, flat, and translucent. The middle ear space is clear Hearing: Clinical speech medical receptionist medical assistant threshold testing is grossly normal. Nose: External: There is no gross external deformity, tenderness, or skin lesion or mass. Mucosa: There is no nasal mucosal edema, inflammation, lesion, or mass. Dry mucosa Septum: The nasal septum is deviated left Nasal cavity: +bilateral ITH Oral cavity/Oropharynx: Lips: There are no lip lesions or masses. Oral cavity: +2.5-3cm trismus, 1.5cm ulceration over R lingual mandibular gingiva, +torus mandibularis. No obvious dental abscess. FOM soft to palpation, mild limitation of ROM of tongue to the left, good tongue protrusion Oropharynx: There is no inflammation, lesion, or mass involving the palatine t onsils or posterior pharyngeal wall. Neck: General: Sig soft tissue erythema and swelling of the submental and submandibular region, firm and tender to palpation, no obvious fluctuance +++induration Lymph nodes: There is no visible or palpable neck lymphadenopathy. Respiratory/Pulmonary: There is no stertor or stridor. There is normal respiratory effort without acute distress. Cardiovascular: There is no visible extremity edema. Skin: There are no visible lesions or masses involving the skin of the head and neck region. Psychiatric: Mental status: The patient is awake and alert. Mood/affect: The patient has a normal mood and affect. Procedure: Flexible fiberoptic laryngoscopy Indication: submental swelling Details: Following the topical application of afrin and lidocaine, the flexible laryngoscope was inserted into the nasal cavity. The septum, turbinates, and nasal mucosa were normal. The nasopharynx was normal. The palatine tonsils were normal bilaterally. The base of tongue and vallecula were normal. The epiglottis, bilateral arytenoids, and bilateral aryepiglottic folds, and bilateral false vocal folds were normal. The true vocal folds were normal without masses or lesions. There was normal mobility of the true vocal folds bilaterally. The bilateral pyriform sinuses and postcricoid space was normal. There were thick secretions in the postcricoid space. No aspiration or penetration was visualized. The patient tolerated the procedure well. Results & Data ([facility]) Vital Signs (Past 12 Hours) Vital Signs Temp Pulse Pulse Resp BP BP Pulse Ox 11/22/22 15:59 86 18 166/104 H 98 11/22/22 13:15 36.7 C 87 22 130/84 99 O2 Del Method 11/22/22 15:59 Room Air 11/22/22 13:15 Room Air PG Care Time/CCT Total # of Minutes Spent Total Time Spent with Patient: Total time spent is greater than 50% in coordination of care (as documented) at patient's floor/unit and/or counseling patient: Coding Level of Care Code 15982 OFFICE CONSULT LVL 40M Diagnoses Submental abscess L02.01 CPT Codes LARYNGOSCOPY DIAGNOSTIC FLEXIBLE - 21646 ([id number])
[2022-11-22] MEDS ORDERED: SODIUM CHLORIDE 0.9% 1000ML 1,000 ML IV SCH (17:45)
--- NOTE | 2022-11-22 17:47 | History & Physical Report ---
Date of Service November 22, 2022 Assessment & Plan (1) Submental abscess: Plan: Submandibular abscess in the setting of recent intubation for appendectomy - CTsoft tissue neck: Enhancement of 3.9 x 2.8 cm submandibular fluid likely abscess with possible overlying cellulitis. Regional lymphadenopathy noted.Physical exam inconsistent with Ludwigs Leukocytosis of 15 Discussed with OMFS, will admit and may have limited diet tonight, n.p.o. at midnight. Will reassess in the morning following antibiotics for possible surgical intervention tomorrow. Continue levofloxacin/Flagyl. Continue Levaquin/Flagyl No evidence of airway involvement or compromise on exam/ Hyperlipidemia Continue Crestor Anxiety/depression Continue venlafaxine SUE Typically on CPAP, this is temporarily held in the setting of poor oral/airway abscess. If needed can add nocturnal oxygen if hypoxic, will defer this for now DVT prophylaxis: Pharmacal prophylaxis held in the setting of surgical evaluation. SCDs Disposition: PCU for airway monitoring with submental abscess CODE STATUS: Full Diet: Clears until midnight, n.p.o. at (2) Soft tissue abscess: (3) Hyperlipidemia: (4) Severe obstructive sleep apnea: History of Present Illness Primary Care Provider: John Sherwood MD Patient is a 57-year-old female with history of recent appendectomy with intubation at [facility] who has had 4 days of progressive jaw pain and swelling without drainage. Patient seen the bedside. She reports that after her procedure she returned home and was well, but approximately 4 days ago started to notice some fullness underneath her jaw and some difficulty chewing. Swelling gradually significantly increased and patient presented to the ER for further evaluation. She has had some pain in the bottom of the jaw, sore throat has actually improved since her procedure. She denies any shortness of breath, difficulty breathing, or wheezing. No chest pain, chest pressure. No foul taste in her mouth. Does not have pain in her teeth/when biting down. Patient notes that she did have an ulcer underneath her tongue prior to this. Takes rosuvastatin/Effexor at home. Has had a diffuse rash with violaceous transformation to sulfa in the past, and had a past reaction of swelling in her face with amoxicillin. Did not have airway involvement with either of these. Medical History: Reviewed Medications: Reviewed Surgical History: Reviewed Allergies: Reviewed Social History:Review Code Status:Full Allergies Allergy/AdvReac Type Severity Reaction Status Date / Time Bactrim Allergy Severe N/V/D + Verified 01/28/17 06:33 SEVERE RASH AND SHOCK Penicillins Allergy Severe Facial Verified 11/22/22 16:56 swelling as a child Sulfa (Sulfonamide Allergy Severe N/V/D + Verified 11/22/22 16:56 Antibiotics) SEVERE RASH AND SHOCK sulfamethoxazole Allergy Severe N/V/D + Verified 11/22/22 16:56 SEVERE RASH AND SHOCK trimethoprim Allergy Severe N/V/D + Verified 11/22/22 16:56 SEVERE RASH AND SHOCK bupropion AdvReac Severe Fatigued Verified 11/22/22 16:56 Home Medications Medication Instructions Recorded Confirmed Type cholecalciferol (vitamin D3) 125 125 mcg PO DAILY 12/06/20 11/22/22 History mcg (5,000 unit) capsule rosuvastatin 5 mg tablet 5 mg PO DAILY #30 tabs 08/28/22 11/22/22 Rx venlafaxine 75 mg capsule,extended 75 mg PO DAILY 11/22/22 11/22/22 History release 24 hr Past Med/Surg History Medical History Depression Elevated HDL Hyperlipidemia Impaired glucose metabolism Severe obstructive sleep apnea Surgical History History of breast surgery breast biopsy 2003 calcificaitons History of colonoscopy History of dilation and curettage x2 Family History Mother Stroke Other Hypertension Denies family history of Ovarian cancer Prostate cancer Myocardial infarction Breast cancer Colorectal cancer Social History Smoking Status: Former smoker Tobacco Type: Cigarettes Second Hand Exposure: No; Hx Alcohol Use: Yes Alcohol type: wine Alcohol Intake Frequency: 2-3 x/Week Alcohol Intake Frequency Comment: 2-3/ week Hx Substance Use: No Preferred Language: Estonian Communication Ability: Effective Visual Impairment: No Limitations Hearing Ability: Normal Strike Operations Officer Required: No marital status: Current Living Situation: Spouse current occupational status: employed Feels Safe at Home: Yes Childhood Exposure to Second-Hand Smoke: Yes caffeine: Yes Dental Care, Regularly: Yes Physical Activity Frequency: 3-4 Times per Week Seatbelt Use: always Sunscreen Use: Yes Review of Systems Review of Systems: All systems reviewed & are unremarkable except as noted in HPI & below Physical Exam Physical Exam: General: A&Ox3. NAD. Cooperative. HEENT: Bilat submandibular swelling, tenderness. Uvula midline. No zone 2 involvement. No wheezing/respiratory involvement Pulm: CTAB A&P. -wheezes, -rales, -rhonchi. Symmetrical chest rise. No increased work of breathing. No respiratory distress. Cardiac: RRR, -mrg. Radial pulses intact and symmetrical. Abdominal: Nontender, nondistended, soft. BS present. Ext: warm, dry, no swelling/edema Results & Data Results & Data ([facility]) Vital Signs (Past 12 Hours) Vital Signs Temp Pulse Pulse Resp BP BP Pulse Ox 11/22/22 17:35 96 H 20 177/112 H 100 11/22/22 15:59 86 18 166/104 H 98 11/22/22 13:15 36.7 C 87 22 130/84 99 O2 Del Method 11/22/22 17:35 Room Air 11/22/22 15:59 Room Air 11/22/22 13:15 Room Air PG Care Time/CCT Total # of Minutes Spent Total Time Spent with Patient: Total time spent is greater than 50% in coordination of care (as documented) at patient's floor/unit and/or counseling patient: Coding Level of Care Code 79192 INT INP/OBS CARE 2/55MIN Diagnoses Submental abscess L02.01 Soft tissue abscess L02.91 Hyperlipidemia E78.5 Severe obstructive sleep apnea G47.33
[2022-11-22] MEDS: ACETAMINOPHEN 325 MG TAB PO PRN (21:10)
[2022-11-22] MEDS: NORMOSOL-R 1,000 ML IV SCH (21:22)
[2022-11-23] MEDS: metroNIDAZOLE 500 MG/100 ML BAG IV SCH ×3 (01:42→20:17)
[2022-11-23 06:41] LABS: Basophils # (auto) 0.06 K/uL (0-0.2); Basophils % (auto) 0.3 %; Eosinophils # (auto) 0.05 K/uL (0-0.50); Eosinophils % (auto) 0.3 %; Hematocrit (blood only) 43.4 % (37.0-47.0); Hemoglobin 14.8 g/dl (12.0-16.0); Immature Granulocytes # (auto) 0.07 K/uL (0.01-0.20); Immature Granulocytes % (auto) 0.4 %; Lymphocytes # (auto) 1.01 K/uL (1.2-3.4); Lymphocytes % (auto) 5.6 %; Mean Corpuscular Hemoglobin 30.7 pg (25.0-34.0); Mean Corpuscular Hgb Conc 34.1 g/dL (32.0-36.0); Mean Platelet Volume 10.8 fL (9.4-12.4); Monocytes # (auto) 1.39 K/uL (0.11-0.59); Monocytes % (auto) 7.7 %; Neutrophils # (auto) 15.43 K/uL (1.40-6.50); Neutrophils % (auto) 85.7 %; Platelet Count 260 K/uL (130-400); RDW Standard Deviation 42.7 fL (36.4-46.3); Red Blood Count 4.82 M/uL (4.20-5.40); White Blood Count 18.01 K/ul (4.8-10.8)
[2022-11-23] MEDS: NORMOSOL-R 1,000 ML IV SCH ×2 (06:42→15:28)
[2022-11-23 07:35] LABS: BUN Creatinine Ratio 14.3 (10-20); Calcium 9.5 mg/dl (8.5-10.1); Creatinine Clr Calc Pharmacy 104.5 ml/min; Est GFR (African American) 113.8 ml/min; Est GFR (Non-African American) 98.2 ml/min; Potassium 3.5 mmol/L (3.5-5.1)
--- NOTE | 2022-11-23 07:49 | Hospitalist Progress Note ---
Date of Service November 23, 2022 Assessment & Plan (1) Submental abscess: Plan: Submandibular abscess acute and unstable in the setting of recent intubation for appendectomy - CTsoft tissue neck: Enhancement of 3.9 x 2.8 cm submandibular fluid likely abscess with possible overlying cellulitis. Regional lymphadenopathy noted.Physical exam inconsistent with Ludwigs Leukocytosis of 18 on Levaquin and Metronidazole possible surgical intervention 11/23/22. No evidence of airway involvement or compromise on exam Chronic and stable hyperlipidemia Continue Crestor Chronic and stable anxiety/depression Continue venlafaxine SUE chronic and stable Typically on CPAP, this is temporarily held in the setting of poor oral/airway abscess. If needed can add nocturnal oxygen if hypoxic, will defer this for now DVT prophylaxis: Pharmacal prophylaxis held in the setting of surgical evaluation. SCDs CODE STATUS: Full (2) Soft tissue abscess: (3) Hyperlipidemia: (4) Severe obstructive sleep apnea: Admission and Anticipated Discharge Date Admission Date: November 22, 2022 Subjective Patient was comfortable in her room she was still having pressure below her jaw she feels some internal drainage from spontaneous drainage she is having no respiratory distress or stridor supposed to go to the OR today for I&D Physical Exam Physical Exam: Awake alert appropriate. She has fullness below her jaw bilaterally which is worsened on the left side subjectively She has no stridor she is not drooling she can manage her airway Cardiac exam is regular no murmurs lungs are clear Results & Data Results & Data ([facility]) Vital Signs (Past 12 Hours) Vital Signs Temp Pulse Pulse Resp BP Pulse Ox O2 Del Method 11/22/22 20:38 104 H 11/22/22 21:59 95 H 11/23/22 02:55 98.8 F 100 H 18 116/53 L 90 Room Air 11/22/22 22:58 97.9 F 100 H 16 127/82 91 Room Air 11/22/22 20:17 95 H 18 163/89 H 97 Room Air Laboratory Results Reviewed CBC Reviewed chemistry PG Care Time/CCT Total # of Minutes Spent Total Time Spent with Patient: Total time spent is greater than 50% in coordination of care (as documented) at patient's floor/unit and/or counseling patient: Coding Level of Care Code 01797 SUB INP/OBS CARE 2/35MIN Diagnoses Submental abscess L02.01 Soft tissue abscess L02.91 Hyperlipidemia E78.5 Severe obstructive sleep apnea G47.33
[2022-11-23] MEDS: ROSUVASTATIN CALCIUM 5 MG TAB PO SCH (08:29)
[2022-11-23] MEDS: ACETAMINOPHEN 325 MG TAB PO PRN ×2 (08:29→12:22)
[2022-11-23] MEDS: VENLAFAXINE HCL XR 75 MG CAPXR PO SCH (08:30)
[2022-11-23] MEDS: CHOLECALCIFEROL 5,000 UNITS 125 MCG TAB PO SCH (08:30)
[2022-11-23] MEDS ORDERED: PROPOFOL IV EMULSION 10 MG/ML 20 ML VIAL IV ONE (15:22)
[2022-11-23] MEDS ORDERED: DEXAMETHASONE SOD INJ 4 MG/ML VIAL ONE (15:22)
[2022-11-23] MEDS ORDERED: ONDANSETRON INJ 2 MG/ML 2 ML VIAL ONE (15:22)
[2022-11-23] MEDS ORDERED: fentaNYL citrate 100 MCG/2 ML VIAL ONE ×2 (15:23→18:22)
[2022-11-23] MEDS ORDERED: MIDAZOLAM HCL 1 MG/ML 2ML VIAL ONE ×2 (15:23→15:35)
[2022-11-23] MEDS ORDERED: BENZOCAINE/TETRACAIN/BUTAM 50 APPLN/5 GM CAN EXT ONE ×2 (15:37→17:02)
[2022-11-23] MEDS ORDERED: LIDOCAINE 4% MPF LOCAL INJ 5 ML AMP ONE (15:38)
[2022-11-23] MEDS ORDERED: LIDOCAINE 2% JELLY 5 ML TUBE EXT ONE (15:43)
[2022-11-23] MEDS ORDERED: LIDOCAINE 5% OINT 30 GM TUBE ONE (15:44)
[2022-11-23] MEDS ORDERED: LIDOCAINE VISCOUS 2% 15 ML UDC ONE (15:45)
--- NOTE | 2022-11-23 15:51 | Oral/Maxillofacial Consult ---
Date of Consultation November 23, 2022 Assessment & Plan (1) Submental abscess: (2) Facial swelling: (3) Mandibular bony exostosis: (4) Exposed mandibular bone: History of Present Illness Attending Physician: Perry Leija MD History of Present Illness Oral Maxillofacial Surgery Exam Present Complaint: I have pain/swelling/drainage in my anterior neck Symptoms have been ongoing for a few days -- now getting worse This patient 57-year-old female who comes in after having facial swelling. It started on Saturday mostly on the right side she says she has an ulcer under her tongue. She did have an appendectomy 10 days ago in [place] and had general anesthesia then. She said it started and more swollen since Saturday it started on the right side and outs both sides she is markedly swollen under her jaw. She has no dental pain no drainage denies shortness of breath or nausea vomiting she has had a sore throat but her pain is not as bad as it was yesterday denies no fever no sick contacts no trauma or injury no abdominal pain. She tells me she is allergic to Bactrim and which is listed in her chart but she also tells me she had facial swelling as a child when she had amoxicillin Oral Exam: Finding--large bilateral mandibular chanel which became traumatized after an intubation at [facility] swelling -- noted-- acute submental infection large bilateral chanel trismus noted secondary to infection exposed bone over the right chanel which is infected. Floor of the mouth and submental area infected Imaging: CT soft tissue neck w con Comparison: Comparison is made to CT soft tissue neck 11/22/2022 Findings: Compared to prior exam, there is rim enhancement of a irregular 39 x 28 mm submandibular fluid collection compatible with abscess. This lesion is noted to display the digastric muscles bilaterally. Regional lymphadenopathy is again seen measuring up to 14 mm in short axis. Soft tissue thickening and fat stranding are also noted in the area. Impression: Rim enhancement of the previously noted abnormality in the mouth floor com patible with abscess with reactive adenopathy. There may be overlying cellulitis. Soft tissue: Significant swelling anterior neck and submandibular area floor of the mouth very swollen , tongue slightly elevated , hard/soft palate, posterior pharyngeal area all with in normal limits,noted. Oral Care: Overall oral care is good Occlusion: Class I TMJ exam: Has trismus secondary to current infection limited mouth opening Periodontal exam: Healthy gingival tissue without evidence of periodontal pathology. Noted large irregular Chanel Head/Neck exam: Neck is swollen so is the submental area FROM, Able to extend and flex neck w/o difficulty, no airway issues, History of sleep apnea- on C-PAP Treatment Plan: I and D NITZA submental abscess Set up with general anesthesia in hospital due to complexity of the procedure I reviewed the treatment plan and consent with the patient Understanding was expressed. Time was given for questions regarding the surgery, risks and post op care. Discussed alternative to treatment--procedure as planned, Do not do surgery Risks discussed: Bleeding,Pain,swelling,infection, delayed healing, nerve injury to face,lips,tongue,chin area which could be permanent (rare).Need to remove chanel in future TMJ, jaw stiffness, change in bite (rare), ear pain (referred). injury to nerve or sinus. scaring, need for further drainage Home care reviewed: tooth brushing, rinsing, follow up care with Dr Denny. diet=[id number] dental. Discussed activity level, driving/work while on Rx pain Meds. Surgery to be set up Saturday PM in OR for I and D Allergies Allergy/AdvReac Type Severity Reaction Status Date / Time Bactrim Allergy Severe N/V/D + Verified 01/28/17 06:33 SEVERE RASH AND SHOCK Penicillins Allergy Severe Facial Verified 11/22/22 16:56 swelling as a child Sulfa (Sulfonamide Allergy Severe N/V/D + Verified 11/22/22 16:56 Antibiotics) SEVERE RASH AND SHOCK sulfamethoxazole Allergy Severe N/V/D + Verified 11/22/22 16:56 SEVERE RASH AND SHOCK trimethoprim Allergy Severe N/V/D + Verified 11/22/22 16:56 SEVERE RASH AND SHOCK bupropion AdvReac Severe Fatigued Verified 11/22/22 16:56 Home Medications Medication Instructions Recorded Confirmed Type cholecalciferol (vitamin D3) 125 125 mcg PO DAILY 12/06/20 11/22/22 History mcg (5,000 unit) capsule rosuvastatin 5 mg tablet 5 mg PO DAILY #30 tabs 08/28/22 11/22/22 Rx venlafaxine 75 mg capsule,extended 75 mg PO DAILY 11/22/22 11/22/22 History release 24 hr Patient History Medical History Depression Elevated HDL Hyperlipidemia Impaired glucose metabolism Severe obstructive sleep apnea Surgical History History of breast surgery breast biopsy 2002 calcificaitons History of colonoscopy History of dilation and curettage x2 Family History Mother Stroke Other Hypertension Denies family history of Ovarian cancer Prostate cancer Myocardial infarction Breast cancer Colorectal cancer Social History Smoking Status: Former smoker Tobacco Type: Cigarettes Second Hand Exposure: No; Do You Dip or Chew Tobacco: No; Tobacco Cessation Education Requested by Patient: No Hx Alcohol Use: Yes Alcohol type: wine Alcohol Intake Frequency: 2-3 x/Week Alcohol Intake Frequency Comment: 2-3/ week Hx Substance Use: No Preferred Language: Upper Sorbian Communication Ability: Effective Visual Impairment: No Limitations Hearing Ability: Normal Equipment Services Associate Required: No Beliefs That Will Affect Care: None marital status: Current Living Situation: Spouse current occupational status: employed Other Information That Helps Us Care for You: No Feels Safe at Home: Yes Safety Concerns: Feels Safe At This Time Childhood Exposure to Second-Hand Smoke: Yes caffeine: Yes Dental Care, Regularly: Yes Physical Activity Frequency: 3-4 Times per Week Seatbelt Use: always Sunscreen Use: Yes Assistive Devices: None Results & Data ([facility]) Vital Signs (Past 12 Hours) Vital Signs Temp Pulse Pulse Resp BP Pulse Ox O2 Del Method 11/23/22 09:00 104 H 11/23/22 11:56 36.6 C 100 H 20 135/78 95 Room Air 11/23/22 07:50 36.9 C 109 H 18 138/79 92 Room Air PG Care Time/CCT Total # of Minutes Spent Total Time Spent with Patient: Total time spent is greater than 50% in coordination of care (as documented) at patient's floor/unit and/or counseling patient: Coding Level of Care Code 36872 IN/OBS CONSULT LVL 3,45M Diagnoses Submental abscess L02.01 Facial swelling R22.0 Mandibular bony exostosis M27.8 Exposed mandibular bone R29.898
--- NOTE | 2022-11-23 15:53 | Anesthesiology Consultation ---
Date of Service November 23, 2022 Assessment & Plan ASA ASA4 Proposed Anesthesia Anesthesia Type: General Risk / Benefits Reviewed With: PT / POA / Parent / Guardian, Accepts Plan and Informed Consent Obtained Additional Comments: difficult airway, will do awake fiberoptic History Surgery Operation Date: 11/23/22 10:10 Proposed Procedures p Submental Space Incision and Drainage - Segundo Denny, DMD Height/Weight Height: 5 ft 5 in Weight: 86.6 kg Allergies Allergy/AdvReac Type Severity Reaction Status Date / Time Bactrim Allergy Severe N/V/D + Verified 01/28/17 06:33 SEVERE RASH AND SHOCK Penicillins Allergy Severe Facial Verified 11/22/22 16:56 swelling as a child Sulfa (Sulfonamide Allergy Severe N/V/D + Verified 11/22/22 16:56 Antibiotics) SEVERE RASH AND SHOCK sulfamethoxazole Allergy Severe N/V/D + Verified 11/22/22 16:56 SEVERE RASH AND SHOCK trimethoprim Allergy Severe N/V/D + Verified 11/22/22 16:56 SEVERE RASH AND SHOCK bupropion AdvReac Severe Fatigued Verified 11/22/22 16:56 Medications Home Medications Medication Instructions Recorded Confirmed Last Taken cholecalciferol (vitamin D3) 125 125 mcg PO DAILY 12/06/20 11/22/22 Unknown mcg (5,000 unit) capsule rosuvastatin 5 mg tablet 5 mg PO DAILY #30 tabs 08/28/22 11/22/22 Unknown venlafaxine 75 mg capsule,extended 75 mg PO DAILY 11/22/22 11/22/22 Unknown release 24 hr Active Medications Generic Name Dose Route Start Last Admin Trade Name Freq PRN Reason Stop Dose Admin Acetaminophen 650 mg 11/22/22 20:48 11/23/22 12:22 Acetaminophen 325 Mg Tab PO 12/22/22 20:47 650 mg Q4H PRN Administration Pain or Fever Metronidazole 500 mg in 100 mls @ 100 mls/hr 11/23/22 02:00 11/23/22 09:44 Flagyl IV 11/30/22 01:59 Infused Q8H MALACHI Infusion Parenteral Electrolytes 1,000 mls @ 125 mls/hr 11/22/22 20:48 11/23/22 15:28 Normosol-R IV 11/23/22 20:47 Not Given .Q8H MALACHI Rosuvastatin Calcium 5 mg 11/23/22 09:00 11/23/22 08:29 Rosuvastatin Calcium 5 Mg Tab PO 12/23/22 08:59 Not Given DAILY MALACHI Venlafaxine HCl 75 mg 11/23/22 09:00 11/23/22 08:30 Venlafaxine Hcl Xr 75 Mg Capxr PO 12/23/22 08:59 75 mg DAILY MALACHI Administration Vitamin D 5,000 units 11/23/22 09:00 11/23/22 08:30 Cholecalciferol 5,000 Units 125 Mcg Tab PO 12/23/22 08:59 5,000 units DAILY MALACHI Administration NPO Date Last Intake of Fluids: 11/22/22 Time Last Intake of Fluids: 23:45 Date Last Intake of Solids: 11/22/22 Time Last Intake of Solids: 23:45 Past Medical History Medical History Depression Elevated HDL Hyperlipidemia Impaired glucose metabolism Severe obstructive sleep apnea Exercise / Class Metabolic Activity II 4-5 Yardwork/Stairs/Walk up hill Past Family History Family History Mother Stroke Other Hypertension Denies family history of Ovarian cancer Prostate cancer Myocardial infarction Breast cancer Colorectal cancer Past Surgical History Surgical History History of breast surgery breast biopsy 2003 calcificaitons History of colonoscopy History of dilation and curettage x2 Past Anesthesia History No Hx of Anesthesia Complications and No Family Hx of Anesthesia Complications History of PONV No Hx of PONV and No Hx of Motion Sickness Social History Smoking Status: Former smoker Do You Dip or Chew Tobacco: No Hx Alcohol Use: Yes Alcohol type: wine alcohol intake frequency: a few times a week Hx Substance Use: No Review of Systems denies fever/cough/ colds/ chest pain/ SOB/ SUE denies SUE Physical Exam Vital Signs Last Vital Signs Temp 37.7 C H 11/23/22 15:38 Pulse 91 H 11/23/22 15:38 Resp 20 11/23/22 15:38 BP 143/93 H 11/23/22 15:38 Pulse Ox 93 11/23/22 15:38 O2 Del Method Room Air 11/23/22 15:38 ENMT Mouth: + dentition abnormality (swollen neck); no TMJ abnormality Thyromental Distance: > or= 3.5 Finger Breadths Mallampati Class: IV Neck + thick neck; neck extension not limited Respiratory normal respiratory effort; no respiratory distress Auscultation: lungs clear to auscultation bilaterally Cardiovascular Rate/Rhythm: regular rate and regular rhythm Neurologic moves all extremities Psychiatric Orientation: alert and oriented x 3 Testing Laboratory Results 11/23/22 06:10 11/23/22 06:10
[2022-11-23] MEDS ORDERED: LIDOCAINE 4% INH SOLN 4 ML BTL INH ONE (16:11)
[2022-11-23] MEDS ORDERED: LIDOCAINE/EPINEPHRINE 1.7 ML CTR ONE (17:05)
[2022-11-23] MEDS ORDERED: CHLORHEXIDINE GLUCONATE 0.12% 480 ML MT ONE (17:05)
[2022-11-23] MEDS ORDERED: DexMEDEtomidine HCL IV 100 MCG/ML VIAL IV ONE (17:15)
[2022-11-23] MEDS ORDERED: RACEPINEPHRINE 2.25% NEBU SOLN 0.5 ML VIAL ONE (18:14)
[2022-11-23] MEDS ORDERED: ePHEDrine sulfate 50 MG/ML AMP IV PRN (18:23)
[2022-11-23] MEDS ORDERED: ATROPINE SULFATE 0.1 MG/ML 10ML SYR IV PRN (18:23)
[2022-11-23] MEDS ORDERED: ONDANSETRON INJ 2 MG/ML 2 ML VIAL IV PRN (18:23)
[2022-11-23] MEDS: fentaNYL citrate 100 MCG/2 ML VIAL IV PRN ×2 (18:25→18:30)
[2022-11-23] MEDS: HYDROmorphone INJ 2 MG/ML SYR/VIAL IV PRN ×2 (18:35→18:40)
--- NOTE | 2022-11-23 18:38 | Operative Report ---
PG Post Operative Report Pre & Post Diagnosis Operation Date: 11/23/22 10:10 Pre-Op Diagnosis: SUBMANDIBULAR ABSCESS AND SUBMENTAL ABSCESS YASHIRA Post-Op Diagnosis: SUBMANDIBULAR ABSCESS AND SUBMENTAL ABSCESS YASHIRA I identified the patient and participated in the time-out.: Yes Procedure Operation Date: 11/23/22 10:10 Actual Procedures p Trbemnzln-Aezotbwfdjdef-hecvd of the mouth Space Incision and Drainage(Not Applicable) - Segundo Denny DMD Surgeon Segundo Denny DMD Cdl Team Truck Driver none Estimated Blood Loss 10 Findings Consistent with Post-Op Diagnosis significant Submental abscess Wbbkebtmv-Kucmlqndpswyy-xiroc of the mouth K12.2 Yashira`s angina M27.0 Bilateral obdulio. Chanel ( infection) CPT 15848 I and D deep abscess neck CPT 84469 I and D sublingual Specimens I&D Drains Moiz Anesthesia Type General Indications acute Infection Description of Procedure K12.2 Yashira`s angina M27.0 Bilateral obdulio. Chanel ( infection) CPT 19139 I and D deep abscess neck CPT 49931 I and D sublingual Actual Procedures p Incision and Drainage Submandibular/submental/floor of the mouth Abscess; - Segundo Denny DMD Once cleared for surgery general anesthesia was achieved via an awake intubation, the eyes were protected by the anesthesia dept criteria. Very difficult airway secondary to massive swelling A time out was take for patient ID, equipment and position verification once all agreed the procedure began. Once a surgical level of anesthesia was obtained time for the blocks the surgery was started. A throat pack was placed after the oral cavity was irrigated with saline. I turned my attention to the acutely infected submental infection which looks to be a Yashira in appearance with the extension and hardness of the area. Incision and Drainage K12.2 Yashira`s angina M27.0 Bilateral obdulio. Chanel ( infection) CPT 70439 I and D deep abscess neck CPT 60010 I and D sublingual Using a 15 blade an incision was made medial to the alveolar ridge and lateral to the duct of the submandibular gland in the floor of the mouth. The bilateral chanel was noted and the right chnael had a large laceration and ulcerated tissue. Once the incision was made a lot of pus extruded from the site. This drainage was cultured for anaerobic and aerobic bacteria. A curved hemostat was carefully placed into the infected space along the medial side of the lower jaw and into the submental space. This was done bilaterally. Some further drainage was now allowed to escape. I palpated the chin and submental area, I needed to place a midline drain the drain the digastric space, once this was done no further drainage was expressed. The area was irrigated with at least 100 ml of NS solution. I now placed the Moiz drains right/left and midline. There were sutured into place with a 5-0 nylon suture. I now inspected the mouth and passed an OG tube. The facial area was cleaned and a dressing was placed. The patient was allowed to awake from the anesthesia. Once full awake the anesthesia tube was removed and the patient was taken to the recovery room with all vital sign stable. The patient tolerated the surgery very well. I will follow the patient in my office, Rx and instructions will be given upon discharge. Because of the Yashira like infection , swelling of the floor of the mouth, tongue and the large chanel ICU admissions is medical necessary for airway protection. I attest to the content of the Intraoperative Record and any orders documented therein. Any exceptions are noted below.
--- NOTE | 2022-11-23 18:56 | Critical Care Consultation ---
Date of Consultation November 23, 2022 Assessment & Plan (1) Submental abscess: (2) Mandibular bony exostosis: (3) Facial swelling: (4) Hyperlipidemia: (5) Severe obstructive sleep apnea: Plan Reason Critically Ill: 57 YOF admitted for submandibular abscess POD # 0 from I&D. Admitted to ICU postoperatively for airway watch secondary to tongue swelling and limited trismus. Patient received Decadron and Racemic Epi nebulizer in PACU- continue Neuro - Acute pain - Neurologically intact following procedure - Pain following I&D- IV tylenol, Morphine - Follow Cardiac - NO acute needs - Continue her home statin Respiratory - S/P I&D submental space infection with concern for upper airway obstruction, SUE - Airway watch overnight- poor visualization - Videolaryngoscopy and fiberoptic at [facility]- emergency cricothyroidotomy tray, bougie, and ETT at bedside - currently phonating well with normal voice, managing secretions, no dysphagia (but had local for awake intubation) and oxygenating well when awake- moving good air- no tracheal wheezing/stridor - Racemic epi and nebs PRN - Leave Nasal Trumpet in place - Humidified oxygen support with face mask- HFNC if needed - Continue with Decadron IV q8 hour x24 hours - Broad spectrum abx see below - HX of severe SUE for which she does not wear CPAP- unable tolerate mask at this time secondary to incision and pain- humidified o2 as above- goal spo2 88- 92% GI - NO acute needs NPO at this time- if no airway compromise later in night consider adding in sips and ice chips RENAL/LYTES - No acute needs - ICU electrolyte protocol - NO acute needs - Bello placed for HANK while in ICU ENDO - No acute needs - Glucose checks q6 hour while NPO and with steroid - ICU hyperglycemic protocol HEME - No acute needs ID - Submental abscess s/p I&D - await culture data- continue broad spectrum abx - follow WBC and biomarkers - should do well with oxygen support, abx, and steroids LINES/IV ACCESS - Ace ALEXANDRE Continue use of these lines DVT PROPHYLAXIS - SCDS, restart chemoprophylaxis when hemostasis is ensured- likely in the am of 11/24/22 DISPO: ICU until airway swelling decreased and optimal I have personally spent 45 minutes of critical care time in the direct management of this patient. This is a life/limb threatening event. This includes time spent evaluating patient, direct bedside care, chart review, placing orders, interpretation of diagnostic studies, discussion with consultants, patient, and family members, as well as other required patient management activities. This time is exclusive of all separately billable procedures, and teaching time and separate from and in addition to any other critical care service time. Thank you for allowing us to participate in the care of this patient. Please refer to my attending physician's documentation for any further recommendations. Supervising Physician Co-Signing Physician Notes seen in the morning of 11/24. significant improvement, able to open jaw. D/W Dr. Denny, stable for downgrade. History of Present Illness Reason for Consultation: Airway watch following I&D of submental space Requesting Physician: Segundo Denny Attending Physician: John Galvan MD History of Present Illness 57 YOF who is HD #2 POD #0 from I&D of submental abscess. Patient underwent I&D today for submental abscess that presented with anterior neck and submandibular swelling as well as floor of mouth and trisumus. She is with what appears chronically enlarged and raised tongue. Patient was awake intubation for surgery and was extubated post surgical case. Anesthesia and OMFS consulted critical care for airway watch overnight. In the PACU the patient is awake, with pain, she reportedly had a stridor and minimal wheeze- she had a NPA placed as well as Decadron and Racemic Epi. She is moving good air at this time without evidence of obstruction. Will admit to ICU, leave NPA in place as well as continue with Decadron scheduled for 24 hours and racemic epi as needed. Continue her current broad spectrum abx. Discussed case with Anesthesia email production specialist and ICU staff attending. Patient also reports history of SUE but does not wear CPAP at home. Patient is FULL CODE. Allergies Allergy/AdvReac Type Severity Reaction Status Date / Time Bactrim Allergy Severe N/V/D + Verified 01/28/17 06:33 SEVERE RASH AND SHOCK Penicillins Allergy Severe Facial Verified 11/22/22 16:56 swelling as a child Sulfa (Sulfonamide Allergy Severe N/V/D + Verified 11/22/22 16:56 Antibiotics) SEVERE RASH AND SHOCK sulfamethoxazole Allergy Severe N/V/D + Verified 11/22/22 16:56 SEVERE RASH AND SHOCK trimethoprim Allergy Severe N/V/D + Verified 11/22/22 16:56 SEVERE RASH AND SHOCK bupropion AdvReac Severe Fatigued Verified 11/22/22 16:56 Home Medications Medication Instructions Recorded Confirmed Type cholecalciferol (vitamin D3) 125 125 mcg PO DAILY 12/06/20 11/22/22 History mcg (5,000 unit) capsule rosuvastatin 5 mg tablet 5 mg PO DAILY #30 tabs 08/28/22 11/22/22 Rx venlafaxine 75 mg capsule,extended 75 mg PO DAILY 11/22/22 11/22/22 History release 24 hr Patient History Medical History Depression Elevated HDL Hyperlipidemia Impaired glucose metabolism Severe obstructive sleep apnea Surgical History History of breast surgery breast biopsy 2002 calcificaitons History of colonoscopy History of dilation and curettage x2 Family History Mother Stroke Other Hypertension Denies family history of Ovarian cancer Prostate cancer Myocardial infarction Breast cancer Colorectal cancer Social History Smoking Status: Former smoker Tobacco Type: Cigarettes Second Hand Exposure: No; Do You Dip or Chew Tobacco: No; Tobacco Cessation Education Requested by Patient: No Hx Alcohol Use: Yes Alcohol type: wine Alcohol Intake Frequency: 2-3 x/Week Alcohol Intake Frequency Comment: 2-3/ week Hx Substance Use: No Preferred Language: Spanish Communication Ability: Effective Visual Impairment: No Limitations Hearing Ability: Normal Official Court Reporter Required: No Beliefs That Will Affect Care: None marital status: Current Living Situation: Spouse current occupational status: employed Other Information That Helps Us Care for You: No Feels Safe at Home: Yes Safety Concerns: Feels Safe At This Time Childhood Exposure to Second-Hand Smoke: Yes caffeine: Yes Dental Care, Regularly: Yes Physical Activity Frequency: 3-4 Times per Week Seatbelt Use: always Sunscreen Use: Yes Assistive Devices: None Review of Systems Review of Systems: REVIEW OF SYSTEMS: Constitutional: No fever, sweats or chills Eyes: No diplopia, no worsening or blurred vision ENT: (+) throat pain, painful swallowing, normal hearing, Respiratory: (+) sleep apnea, No cough, sputum, dyspnea at rest or on exertion Cardiovascular: No chest pain, tightness or palpitations Abdomen: No pain, nausea, vomiting, diarrhea or constipation Musculoskeletal: No joint pain, calf pain, swelling Neurologic: No weakness, numbness/tingling, or balance problems Skin: No rash or itch Physical Exam Physical Exam: PHYSICAL EXAM: General: awake, but groggy following anesthesia Head: Normocephalic, atraumatic ENT: PERRL, EOMI, dressing in place to anterior neck with drains in place, mouth with 2 fingerbreadth opening and inability to visualize uvula, stovall with palpation down sternocleidal and supraclavicular Neuro: AAO x 3, speech clear and appropriate, strength intact bilaterally 5/5, sensation intact and equal all extremities and dermatomes, no pronator drift Chest: equal rise and fall of the chest, no accessory muscle use, inspiratory wheeze in upper airway, Cardiac: Regular rate and rhythm, telemetry reviewed, skin warm dry, cap refill <3 seconds, peripheral pulses +2 no JVD, no murmur, no JVD, no edema GI: NABS x 4 quadrants, soft, nontender to palpation, no rebound, guarding or tenderness : Spontaneously voiding, no pain, no CVA tenderness, Extremities: Normal inspection, no peripheral edema or erythema, calfs nontender to palpation Skin: no rash or erythema Results & Data Results & Data ([facility]) Vital Signs (Past 12 Hours) Vital Signs Temp Pulse Pulse Pulse Resp BP Pulse Ox 11/23/22 18:45 92 H 16 147/93 H 94 11/23/22 18:35 85 15 161/92 H 92 11/23/22 18:25 95 H 21 164/92 H 95 11/23/22 18:18 36.3 C L 91 H 15 174/106 H 98 11/23/22 18:21 94 H 20 96 11/23/22 16:25 94 H 16 100 11/23/22 16:17 82 11/23/22 15:38 37.7 C H 91 H 20 143/93 H 93 11/23/22 09:00 104 H 11/23/22 11:56 36.6 C 100 H 20 135/78 95 11/23/22 07:50 36.9 C 109 H 18 138/79 92 O2 Del Method O2 Flow Rate 11/23/22 18:45 Oxymask 5 11/23/22 18:35 Oxymask 5 11/23/22 18:25 Oxymask 10 11/23/22 18:18 Oxymask 10 11/23/22 18:21 Oxymask 8 11/23/22 16:25 Room Air 11/23/22 16:17 11/23/22 15:38 Room Air 11/23/22 09:00 11/23/22 11:56 Room Air 11/23/22 07:50 Room Air Laboratory Results Abnormal lab results 11/23/22 11/23/22 Range/Units 06:10 06:10 WBC 18.01 H (4.8-10.8) K/ul Neut # (Auto) 15.43 H (1.40-6.50) K/uL Lymph # (Auto) 1.01 L (1.2-3.4) K/uL Haines # (Auto) 1.39 H (0.11-0.59) K/uL Glucose 114 H (70-99(Fasting)) mg/dl Diagnostic Findings Soft Tissue Neck CT 11/22/22 16:24 CT soft tissue neck w con CLINICAL HISTORY: eval for abscess Technique: Axial CT images of the soft tissues of the neck were obtained following intravenous administration of 100 cc of Omnipaque 300. Automated dose lowering techniques and/or adjustment according to patient size were utilized for this exam. CT DOSE: 450.42 mGy.cm Comparison: Comparison is made to CT soft tissue neck 11/22/2022 Findings: Compared to prior exam, there is rim enhancement of a irregular 39 x 28 mm submandibular fluid collection compatible with abscess. This lesion is noted to display the digastric muscles bilaterally. Regional lymphadenopathy is again seen measuring up to 14 mm in short axis. Soft tissue thickening and fat stranding are also noted in the area. Impression: Rim enhancement of the previously noted abnormality in the mouth floor compatible with abscess with reactive adenopathy. There may be overlying cellulitis. ACT 112: Negative or not required by law. Electronically signed by: Ike Bautista M.D. 11/22/2022 4:58 PM Medications Administered Home Medications cholecalciferol (vitamin D3) 125 mcg (5,000 unit) capsule 125 mcg PO DAILY 12/06/20 [History Confirmed 11/22/22] rosuvastatin 5 mg tablet 5 mg PO DAILY #30 tabs 08/28/22 [Rx Confirmed 11/22/22] venlafaxine 75 mg capsule,extended release 24 hr 75 mg PO DAILY 11/22/22 [History Confirmed 11/22/22] Active Medications Acetaminophen (Acetaminophen 325 Mg Tab) 650 mg PO Q4H PRN PRN Reason: Pain or Fever Stop: 12/22/22 20:47 Last Admin: 11/23/22 12:22 Dose: 650 mg Albuterol (Albuterol 0.083% Nebu Soln 3 Ml Vial) 2.5 mg NEB Q6R PRN; Protocol PRN Reason: wheezing, cough Stop: 12/23/22 20:22 Dextrose (Dextrose 50% 50 Ml Syringe) 25 - 50 ml IV UD PRN; Protocol PRN Reason: Hypoglycemia Protocol Stop: 12/23/22 19:45 Epinephrine (Racepinephrine 2.25% Nebu Soln 0.5 Ml Vial) 0.5 ml NEB Q4R PRN PRN Reason: stridor Stop: 12/23/22 20:22 Glucagon (Glucagon For Inj 1 Mg Vial) 1 mg SQ UD PRN; Protocol PRN Reason: Hypoglycemia Protocol Stop: 12/23/22 19:45 Glucose (Glucose 10 Tab/Tube) 4 - 8 tab PO UD PRN; Protocol PRN Reason: Hypoglycemia Treatment Stop: 12/23/22 19:45 Glucose (Glucose 40% Gel 15 Gm Tube) 15 - 30 gm PO UD PRN; Protocol PRN Reason: Hypoglycemia Protocol Stop: 12/23/22 19:45 Levofloxacin/Dextrose (Levaquin/D5w) 750 mg in 150 mls @ 100 mls/hr IV Q24H MALACHI Stop: 11/30/22 17:59 Last Admin: 11/23/22 20:17 Dose: Not Given Metronidazole (Flagyl) 500 mg in 100 mls @ 100 mls/hr IV Q8H MALACHI Stop: 11/30/22 01:59 Last Admin: 11/23/22 20:17 Dose: Not Given Dexamethasone 6 mg/ Syringe 1.5 mls @ 1 mls/min IV Q8 MALACHI Stop: 11/24/22 23:00 Miscellaneous (Icu Protocol For Hyperglycemia) 1 each N/A ACHS [facility] Stop: 11/25/22 20:59 Miscellaneous (Carbohydrates For Hypoglycemia ) 15 - 30 gm PO UD PRN PRN Reason: Hypoglycemia Protocol Stop: 12/23/22 19:45 Rosuvastatin Calcium (Rosuvastatin Calcium 5 Mg Tab) 5 mg PO DAILY MALAHCI Stop: 12/23/22 08:59 Last Admin: 11/23/22 08:29 Dose: Not Given Venlafaxine HCl (Venlafaxine Hcl Xr 75 Mg Capxr) 75 mg PO DAILY MALACHI Stop: 12/23/22 08:59 Last Admin: 11/23/22 08:30 Dose: 75 mg Vitamin D (Cholecalciferol 5,000 Units 125 Mcg Tab) 5,000 units PO DAILY MALACHI Stop: 12/23/22 08:59 Last Admin: 11/23/22 08:30 Dose: 5,000 units Coding Level of Care Code 62237 CRITICAL CARE 1ST 30-74M Diagnoses Submental abscess L02.01 Mandibular bony exostosis M27.8 Facial swelling R22.0 Hyperlipidemia E78.5 Severe obstructive sleep apnea G47.33
--- NOTE | 2022-11-23 19:02 | Anesthesiology Progress Note ---
Date of Service November 23, 2022 Anesthesia Post Procedure Vital Signs Vital Signs: Temp Pulse Pulse Pulse Resp BP Pulse Ox 11/23/22 18:45 92 H 16 147/93 H 94 11/23/22 18:35 85 15 161/92 H 92 11/23/22 18:25 95 H 21 164/92 H 95 11/23/22 18:18 36.3 C L 91 H 15 174/106 H 98 11/23/22 18:21 94 H 20 96 11/23/22 16:25 94 H 16 100 11/23/22 16:17 82 11/23/22 15:38 37.7 C H 91 H 20 143/93 H 93 11/23/22 09:00 104 H 11/23/22 11:56 36.6 C 100 H 20 135/78 95 11/23/22 07:50 36.9 C 109 H 18 138/79 92 11/22/22 20:38 104 H 11/22/22 21:59 95 H 11/23/22 02:55 37.1 C 100 H 18 116/53 L 90 11/22/22 22:58 36.6 C 100 H 16 127/82 91 11/22/22 20:17 95 H 18 163/89 H 97 O2 Del Method O2 Flow Rate 11/23/22 18:45 Oxymask 5 11/23/22 18:35 Oxymask 5 11/23/22 18:25 Oxymask 10 11/23/22 18:18 Oxymask 10 11/23/22 18:21 Oxymask 8 11/23/22 16:25 Room Air 11/23/22 16:17 11/23/22 15:38 Room Air 11/23/22 09:00 11/23/22 11:56 Room Air 11/23/22 07:50 Room Air 11/22/22 20:38 11/22/22 21:59 11/23/22 02:55 Room Air 11/22/22 22:58 Room Air 11/22/22 20:17 Room Air Pain Intensity Lower Face: Pain Intensity: 8 Lower Jaw: Pain Intensity: 7 Transfer of Care Handoff Completed per policy Notes Mental Status: alert / awake / arousable and participated in evaluation Patient Amnestic to Procedure: Yes Nausea / Vomiting: adequately controlled Pain: adequately controlled Airway Patency, RR, SpO2: see Notes below BP & HR: stable & adequate Hydration State: stable & adequate Anesthetic Complications: no major complications apparent and Pt Satisfied with anesthetic care Notes: pt awake fiberoptic. pt had puss drained. pt was awake and taking good TV. upon extubation pt was stridorous which was felt to be d/t her tongue. A nasal airway was placed and the patient was no longer obstructing. Pt given racemic epi in the pacu. Pt is moving good air through nasal airway with minimal to no stridor. Pt does have sleep apnea and desaturates when she falls asleep. Pt will be monitored in the ICU overnight. Pt is still numb from her FOI, but is able to talk with some effort and reports feeling overall ok. Her pain is well controlled.
[2022-11-23] MEDS ORDERED: CARBOHYDRATES FOR HYPOGLYCEMIA PO PRN (19:46)
[2022-11-23] MEDS ORDERED: GLUCOSE 40% GEL 15 GM TUBE PO PRN (19:46)
[2022-11-23] MEDS ORDERED: GLUCOSE 10 TAB/TUBE PO PRN (19:46)
[2022-11-23] MEDS ORDERED: GLUCAGON FOR INJ 1 MG VIAL SQ PRN (19:46)
[2022-11-23] MEDS ORDERED: DEXTROSE 50% 50 ML SYRINGE IV PRN (19:46)
[2022-11-23] MEDS: levoFLOXacin/D5W 750 MG/150 ML BAG IV SCH (20:17)
[2022-11-23] MEDS ORDERED: ALBUTEROL 0.083% NEBU SOLN 3 ML VIAL NEB PRN (20:23)
[2022-11-23] MEDS ORDERED: RACEPINEPHRINE 2.25% NEBU SOLN 0.5 ML VIAL NEB PRN (20:23)
[2022-11-23] MEDS ORDERED: MoRPHine SULFATE 2 MG/ML CARP IV PRN (20:43)
[2022-11-23] MEDS ORDERED: ACETAMINOPHEN 1,000 MG/100 ML VIAL IV PRN (20:43)
[2022-11-23] MEDS: ICU Protocol for HYPERglycemia SCH (22:46)
[2022-11-23] MEDS: dexAMETHasone 6 MG in SYRINGE 0 ML IV SCH (23:03)
[2022-11-24] MEDS: metroNIDAZOLE 500 MG/100 ML BAG IV SCH ×3 (02:00→18:01)
[2022-11-24 04:59] LABS: Hemoglobin 14.8 g/dl (12.0-16.0); Mean Corpuscular Hemoglobin 30.7 pg (25.0-34.0); Mean Corpuscular Hgb Conc 32.9 g/dL (32.0-36.0); Mean Corpuscular Volume 93.4 fL (80.0-100.0); Mean Platelet Volume 10.5 fL (9.4-12.4); Platelet Count 266 K/uL (130-400); RDW Standard Deviation 44.6 fL (36.4-46.3); Red Blood Count 4.82 M/uL (4.20-5.40); White Blood Count 21.21 K/ul (4.8-10.8)
[2022-11-24 05:14] LABS: BUN Creatinine Ratio 19.7 (10-20); Calcium 9.4 mg/dl (8.5-10.1); Creatinine Clr Calc Pharmacy 107.9 ml/min; Est GFR (Non-African American) 99.2 ml/min; Magnesium 2.2 mg/dl (1.7-2.4); Potassium 4.3 mmol/L (3.5-5.1)
[2022-11-24 05:21] LABS: Basophils # (auto) 0.03 K/uL (0-0.2); Basophils % (auto) 0.1 %; Immature Granulocytes # (auto) 0.08 K/uL (0.01-0.20); Immature Granulocytes % (auto) 0.4 %; Lymphocytes # (auto) 0.43 K/uL (1.2-3.4); Monocytes # (auto) 0.46 K/uL (0.11-0.59); Monocytes % (auto) 2.2 %; Neutrophils # (auto) 20.21 K/uL (1.40-6.50); Neutrophils % (auto) 95.3 %
[2022-11-24] MEDS: dexAMETHasone 6 MG in SYRINGE 0 ML IV SCH ×3 (06:10→21:45)
[2022-11-24] MEDS: ICU Protocol for HYPERglycemia SCH (07:13)
--- NOTE | 2022-11-24 07:42 | Hospitalist Progress Note ---
Date of Service November 24, 2022 Assessment & Plan (1) Submental abscess: Plan: acute submandibular abscess 11/23/22. from I&D. Admitted to ICU postoperatively for airway watch secondary to tongue swelling and limited trismus. Patient received Decadron and Racemic Epi nebulizer in in the setting of recent intubation for appendectomy - pre operative CTsoft tissue neck: Enhancement of 3.9 x 2.8 cm submandibular fluid likely abscess with possible overlying cellulitis. Regional lymphadenopathy noted.Physical exam inconsistent with Ludwigs Leukocytosis, remains on Levaquin and Metronidazole No evidence of airway involvement or compromise on exam, Dr Denny will see in am of11/25 and may consider discharge if patient is improved down graded to medical, all orders reviewed (2) Hyperlipidemia: Plan: Chronic and stable hyperlipidemia Continue Crestor (3) Severe obstructive sleep apnea: Plan: SUE chronic and stable Typically on CPAP, this is temporarily held in the setting of poor oral/airway abscess. If needed can add nocturnal oxygen if hypoxic, will defer this for now Plan DVT prophylaxis: Pharmacal prophylaxis held in the setting of surgical evaluation. [facility] Admission and Anticipated Discharge Date Admission Date: November 22, 2022 Subjective pt was taken to the OR 11/23/22 and observed overnight for airway in the icu, will be downgraded today, she has swellling but is able to handle secretions Physical Exam Physical Exam: Awake alert appropriate. she has facial swelling and submandibular swelling She has no stridor she is not drooling she can manage her airway Cardiac exam is regular no murmurs lungs are clear Results & Data Results & Data ([facility]) Vital Signs (Past 12 Hours) Vital Signs Temp Pulse Pulse Resp BP Pulse Ox Pulse Ox 11/24/22 07:28 11/24/22 07:01 99.3 F 83 16 149/67 H 94 11/24/22 06:30 99.3 F 95 H 17 84 L 11/24/22 06:00 99.1 F 91 H 20 93 11/24/22 06:00 146/83 H 11/24/22 05:30 99.0 F 95 H 16 97 11/24/22 05:00 99.5 F 86 18 95 11/24/22 05:00 152/85 H 11/24/22 04:30 99.1 F 86 22 95 11/24/22 04:00 98.8 F 86 17 93 11/24/22 04:00 129/81 11/24/22 03:30 98.6 F 76 19 93 11/24/22 03:00 98.6 F 84 17 92 11/24/22 03:00 115/71 11/24/22 02:30 98.6 F 82 18 92 11/24/22 02:00 98.6 F 79 17 92 11/24/22 02:00 111/65 11/24/22 01:30 99.0 F 86 16 93 11/24/22 01:00 99.0 F 76 21 92 11/24/22 01:00 130/82 11/24/22 02:34 78 18 92 11/24/22 00:30 99.1 F 88 17 92 11/24/22 00:00 99.5 F 90 36 H 91 11/24/22 00:00 136/79 11/23/22 23:30 99.5 F 78 21 93 11/23/22 23:00 99.1 F 90 21 83 L 11/23/22 23:00 145/73 H 11/23/22 22:30 99.3 F 83 16 89 L 11/23/22 22:15 99.3 F 95 H 27 H 90 11/23/22 22:00 99.3 F 99 H 36 H 90 11/23/22 22:00 128/78 11/23/22 21:45 99.3 F 99 H 27 H 90 11/23/22 21:30 99.3 F 93 H 18 89 L 11/23/22 21:15 99.1 F 85 18 89 L 11/23/22 21:01 99.1 F 92 H 12 97 11/23/22 21:01 159/84 H 11/23/22 21:00 99.1 F 90 15 95 11/23/22 20:45 99.1 F 82 18 84 L 11/23/22 20:30 99.1 F 92 H 15 91 11/23/22 20:15 99.1 F 92 H 17 95 11/23/22 20:04 99.3 F 89 25 H 94 11/23/22 20:04 159/89 H 11/23/22 20:00 99.1 F 94 H 19 94 11/23/22 19:45 99.0 F 79 15 87 L 11/23/22 19:38 98.2 F 97 H 92 11/23/22 22:40 87 L 11/23/22 20:48 88 L 11/23/22 22:13 94 H 24 90 11/23/22 21:01 82 14 95 11/23/22 19:55 O2 Del Method O2 Del Method O2 Flow Rate FiO2 11/24/22 07:28 Aerosol Mask 11/24/22 07:01 11/24/22 06:30 11/24/22 06:00 11/24/22 06:00 11/24/22 05:30 11/24/22 05:00 11/24/22 05:00 11/24/22 04:30 11/24/22 04:00 11/24/22 04:00 11/24/22 03:30 11/24/22 03:00 11/24/22 03:00 11/24/22 02:30 11/24/22 02:00 11/24/22 02:00 11/24/22 01:30 11/24/22 01:00 11/24/22 01:00 11/24/22 02:34 Aerosol Mask 15 100 11/24/22 00:30 11/24/22 00:00 11/24/22 00:00 11/23/22 23:30 11/23/22 23:00 11/23/22 23:00 11/23/22 22:30 11/23/22 22:15 11/23/22 22:00 11/23/22 22:00 11/23/22 21:45 11/23/22 21:30 11/23/22 21:15 11/23/22 21:01 11/23/22 21:01 11/23/22 21:00 11/23/22 20:45 11/23/22 20:30 11/23/22 20:15 11/23/22 20:04 11/23/22 20:04 11/23/22 20:00 11/23/22 19:45 11/23/22 19:38 11/23/22 22:40 Aerosol Mask 11/23/22 20:48 Aerosol Mask 11/23/22 22:13 Aerosol Mask 15 100 11/23/22 21:01 Aerosol Mask 15 100 11/23/22 19:55 Aerosol Mask 15 60 Laboratory Results Reviewed CBC Reviewed PRP PG Care Time/CCT Total # of Minutes Spent Total Time Spent with Patient: Total time spent is greater than 50% in coordination of care (as documented) at patient's floor/unit and/or counseling patient: Coding Level of Care Code 51031 SUB INP/OBS CARE 2/35MIN Diagnoses Submental abscess L02.01 Hyperlipidemia E78.5 Severe obstructive sleep apnea G47.33
[2022-11-24] MEDS: ACETAMINOPHEN 325 MG TAB PO PRN ×3 (08:08→18:01)
[2022-11-24] MEDS: ROSUVASTATIN CALCIUM 5 MG TAB PO SCH ×2 (08:09→08:17)
[2022-11-24] MEDS: CHOLECALCIFEROL 5,000 UNITS 125 MCG TAB PO SCH ×2 (08:09→08:17)
[2022-11-24] MEDS: VENLAFAXINE HCL XR 75 MG CAPXR PO SCH ×2 (08:09→08:17)
--- NOTE | 2022-11-24 10:50 | Oral/Maxillofacial Progress Nt ---
Date of Service November 24, 2022 Assessment & Plan Admission and Anticipated Discharge Date Admission Date: November 22, 2022 Subjective Post Op infection evaluation at 18 hours post op The infected area is now much softer and draining well Swelling has decreased and and the tissue is much softer Improved swallowing and oral opening Good drainage is noted. Drain functioning very well--dressing changes Cultures were reviewed. Infection has responded very well to the antibiotics and the I and D. I requested that the patient continue with massage, heat and wound care. At this time the area is well healed and responded well to treatment. Anticipate drain removal by Saturday - this can be done in my office once discharged I will see Simi Saturday . Results & Data ([facility]) Vital Signs (Past 12 Hours) Vital Signs Temp Pulse Pulse Resp BP Pulse Ox O2 Del Method 11/24/22 09:00 37.4 C 87 22 119/64 93 Nasal Cannula 11/24/22 08:00 37.5 C 99 H 23 113/66 91 Nasal Cannula 11/24/22 07:28 Aerosol Mask 11/24/22 07:01 37.4 C 83 16 149/67 H 94 11/24/22 06:30 37.4 C 95 H 17 84 L 11/24/22 06:00 37.3 C 91 H 20 93 11/24/22 06:00 146/83 H 11/24/22 05:30 37.2 C 95 H 16 97 11/24/22 05:00 37.5 C 86 18 95 11/24/22 05:00 152/85 H 11/24/22 04:30 37.3 C 86 22 95 11/24/22 04:00 37.1 C 86 17 93 11/24/22 04:00 129/81 11/24/22 03:30 37.0 C 76 19 93 11/24/22 03:00 37.0 C 84 17 92 11/24/22 03:00 115/71 11/24/22 02:30 37.0 C 82 18 92 11/24/22 02:00 37.0 C 79 17 92 11/24/22 02:00 111/65 11/24/22 01:30 37.2 C 86 16 93 11/24/22 01:00 37.2 C 76 21 92 11/24/22 01:00 130/82 03/04/23 02:34 78 18 92 Aerosol Mask 11/24/22 00:30 37.3 C 88 17 92 11/24/22 00:00 37.5 C 90 36 H 91 11/24/22 00:00 136/79 11/23/22 23:30 37.5 C 78 21 93 11/23/22 23:00 37.3 C 90 21 83 L 11/23/22 23:00 145/73 H O2 Flow Rate FiO2 11/24/22 09:00 2 11/24/22 08:00 2 11/24/22 07:28 11/24/22 07:01 11/24/22 06:30 11/24/22 06:00 11/24/22 06:00 11/24/22 05:30 11/24/22 05:00 11/24/22 05:00 11/24/22 04:30 11/24/22 04:00 11/24/22 04:00 11/24/22 03:30 11/24/22 03:00 11/24/22 03:00 11/24/22 02:30 11/24/22 02:00 11/24/22 02:00 11/24/22 01:30 11/24/22 01:00 11/24/22 01:00 11/24/22 02:34 15 100 11/24/22 00:30 11/24/22 00:00 11/24/22 00:00 11/23/22 23:30 11/23/22 23:00 11/23/22 23:00 PG Care Time/CCT Total # of Minutes Spent Total Time Spent with Patient: Total time spent is greater than 50% in coordination of care (as documented) at patient's floor/unit and/or counseling patient: Coding Level of Care Code None Diagnoses
[2022-11-24] MEDS: levoFLOXacin/D5W 750 MG/150 ML BAG IV SCH (18:00)
[2022-11-24] MEDS ORDERED: SODIUM CHLORIDE 0.9% 500 ML IV SCH (20:45)
[2022-11-25] MEDS: metroNIDAZOLE 500 MG/100 ML BAG IV SCH ×2 (01:56→10:04)
[2022-11-25 06:27] LABS: Hematocrit (blood only) 40.1 % (37.0-47.0); Hemoglobin 13.3 g/dl (12.0-16.0); Mean Corpuscular Hemoglobin 30.5 pg (25.0-34.0); Mean Corpuscular Hgb Conc 33.2 g/dL (32.0-36.0); Mean Platelet Volume 11.2 fL (9.4-12.4); Platelet Count 337 K/uL (130-400); RDW Standard Deviation 44.1 fL (36.4-46.3); Red Blood Count 4.36 M/uL (4.20-5.40); White Blood Count 29.69 K/ul (4.8-10.8)
[2022-11-25 06:37] LABS: BUN Creatinine Ratio 29.6 (10-20); Calcium 9.4 mg/dl (8.5-10.1); Creatinine Clr Calc Pharmacy 122.3 ml/min; Est GFR (African American) 119.7 ml/min; Est GFR (Non-African American) 103.3 ml/min; Magnesium 2.1 mg/dl (1.7-2.4)
[2022-11-25 07:04] LABS: Basophils # (auto) 0.05 K/uL (0-0.2); Basophils % (auto) 0.2 %; Eosinophils # (auto) 0.55 K/uL (0-0.50); Eosinophils % (auto) 1.9 %; Immature Granulocytes # (auto) 0.32 K/uL (0.01-0.20); Immature Granulocytes % (auto) 1.1 %; Lymphocytes # (auto) 0.75 K/uL (1.2-3.4); Lymphocytes % (auto) 2.5 %; Monocytes # (auto) 0.93 K/uL (0.11-0.59); Monocytes % (auto) 3.1 %; Neutrophils # (auto) 27.09 K/uL (1.40-6.50); Neutrophils % (auto) 91.2 %
[2022-11-25] MEDS: ACETAMINOPHEN 325 MG TAB PO PRN (08:06)
[2022-11-25] MEDS: VENLAFAXINE HCL XR 75 MG CAPXR PO SCH (08:07)
--- NOTE | 2022-11-25 12:06 | Oral/Maxillofacial Progress Nt ---
Date of Service November 25, 2022 Assessment & Plan Admission and Anticipated Discharge Date Admission Date: November 22, 2022 Subjective Post Op infection evaluation day 2 The infected area has responded very well to the I&D Swelling has subsided and the tissue is much softer Less drainage is noted. Drain will be removed on Saturday in my office Cultures were reviewed. Infection has responded very well to the antibiotics and the I and D. I requested that the patient continue with massage, heat and wound care. At this time the submental infection has responded very well to treatment. OK for D/C on the oral antibiotics I reviewed follow up care and dressing care RTC SaturdayNovember 27 at 2:45 Results & Data ([facility]) Vital Signs (Past 12 Hours) Vital Signs Temp Pulse Pulse Pulse Resp BP Pulse Ox 11/25/22 11:48 36.7 C 80 19 104/65 93 11/25/22 07:34 92 H 18 130/79 94 11/25/22 03:48 36.5 C 74 20 126/72 93 11/25/22 00:45 84 O2 Del Method 11/25/22 11:48 Room Air 11/25/22 07:34 Room Air 11/25/22 03:48 Room Air 11/25/22 00:45 PG Care Time/CCT Total # of Minutes Spent Total Time Spent with Patient: Total time spent is greater than 50% in coordination of care (as documented) at patient's floor/unit and/or counseling patient: Coding Level of Care Code None Diagnoses
--- NOTE | 2022-11-25 12:58 | Discharge Summary ---
Date of Service November 25, 2022 Admission HPI Per Admitting Provider Patient is a 57-year-old female with history of recent appendectomy with intubation at [facility] who has had 4 days of progressive jaw pain and swelling without drainage. Patient seen the bedside. She reports that after her procedure she returned home and was well, but approximately 4 days ago started to notice some fullness underneath her jaw and some difficulty chewing. Swelling gradually significantly increased and patient presented to the ER for further evaluation. She has had some pain in the bottom of the jaw, sore throat has actually improved since her procedure. She denies any shortness of breath, difficulty breathing, or wheezing. No chest pain, chest pressure. No foul taste in her mouth. Does not have pain in her teeth/when biting down. Patient notes that she did have an ulcer underneath her tongue prior to this. Takes rosuvastatin/Effexor at home. Has had a diffuse rash with violaceous transformation to sulfa in the past, and had a past reaction of swelling in her face with amoxicillin. Did not have airway involvement with either of these. Medical History: Reviewed Medications: Reviewed Surgical History: Reviewed Allergies: Reviewed Social History:Review Code Status:Full Principal Diagnosis Submentalsubmandibular floor of mouth abscess with I&D performed by Dr. Denny on 11/23/2022 Discharge Exam Patient improved dramatically after 2 days her swelling gone down significantly she is able to speak and tolerate oral intake. She was seen with Dr. Denny the day of surgery and requested patient be discharged he will follow-up 2 days postdischarge for drain removal in his office Discharge Data Allergies Allergy/AdvReac Type Severity Reaction Status Date / Time Bactrim Allergy Severe N/V/D + Verified 01/28/17 06:33 SEVERE RASH AND SHOCK Penicillins Allergy Severe Facial Verified 11/22/22 16:56 swelling as a child Sulfa (Sulfonamide Allergy Severe N/V/D + Verified 11/22/22 16:56 Antibiotics) SEVERE RASH AND SHOCK sulfamethoxazole Allergy Severe N/V/D + Verified 11/22/22 16:56 SEVERE RASH AND SHOCK trimethoprim Allergy Severe N/V/D + Verified 11/22/22 16:56 SEVERE RASH AND SHOCK bupropion AdvReac Severe Fatigued Verified 11/22/22 16:56 Consultations 11/22/22 17:46 ED Decision to Admit Stat 11/23/22 18:27 Consult [employer] Routine Procedures Performed Operation Date: 11/23/22 10:10 Actual Procedures p Submental Space Incision and Drainage(Not Applicable) - Segundo Denny DMD Ordered Studies 11/22/22 16:24 CT soft tissue neck w con Stat Hospital Course (1) Submental abscess: acute submandibular abscess 11/23/22. from I&D. Admitted to ICU postoperatively for airway watch secondary to tongue swelling and limited trismus. Patient received Decadron and Racemic Epi nebulizer in in the setting of recent intubation for appendectomy - pre operative CTsoft tissue neck: Enhancement of 3.9 x 2.8 cm submandibular fluid likely abscess with possible overlying cellulitis. No evidence of airway involvement or compromise on exam, Patient is discharged on levofloxacin and metronidazole and oxycodone for pain control she is not discharged in steroids at this time (2) Hyperlipidemia: Chronic and stable hyperlipidemia Continue Crestor (3) Severe obstructive sleep apnea: SUE chronic and stable Typically on CPAP, this is temporarily held in the setting of poor oral/airway abscess. Recommend not returning to CPAP until after drain was removed Plan DVT prophylaxis: Pharmacal prophylaxis held in the setting of surgical evaluation. SCDs Total Time Total Time Spent Total Time Spent (In Minutes): It required greater than 30 minutes to prepare this patient for discharge Discharge Plan Discharge Items Patient Disposition: Home - Self-Care Reason For Visit: SUBMANDIBULAR ABSCESS Discharge Diagnosis: submandibular abscess with surgical drainage Condition on Discharge: Good Activity: Per Instructions section Lifting: Gradually increase as tolerated Bathing: No limitations Exercise/Sports: Gradually increase as tolerated Driving/Machine Use: Resume 1 day after discharge Non-emergency contact: Primary Care Provider and Surgeon Call non-emergency contact if: your symptoms worsen Follow-up/Referrals: John Sherwood MD [Primary Care Provider] - Segundo Denny DMD [Physician] - Diet: Regular Diet Texture: Dental soft (bite-sized) Addtl Attending Provider Instructions: you will need to have follow up with Dr Denny for continued care of your infection please take you antibiotics to continue to treat and clear your infection. Recommend not using CPAP at home until cleared by Dr. Denny [employer]cl[employer] Provider Instructions: ADDITIONAL ACTIVITY RECOMMENDATIONS: * [place] teeth after every meal. It is very important to keep your mouth clean to prevent infection. * Starting tonight rinse with the Peridex as directed then 2 x a day * it is very important to keep well hydrated, this prevents fever SPECIAL CARE INSTRUCTIONS: *It is not uncommon that between day 2-4 that your swelling will be at its worst this is very normal, do not be alarmed. * apply heat (hot water bottle or heating pad) for the next two days, as often as possible. * Tomorrow start rinsing your mouth with 1/2 teaspoon salt in 8 ounces warm water. This rinse should be used every 4-6 hours. * You may experience slight nausea. To prevent this, never take your medication on an empty stomach. If nauseated, take small sips of estevan mark until you feel better; then you may start on applesauce and toast. * Some swelling is common. It should gradually decrease within 4-5 days. * A certain amount of bleeding is to be expected. It is often possible to control mild oozing by placing folded gauze over the area and biting down for 30 minutes. If you are unable to control excessive bleeding, call Dr Denny at [phone] * You may experience some discomfort for a few days. If pain or swelling increases, Call Dr Denny * Return to the office for a follow up check up on: SaturdayNOVEMBER 27 at 2:45 pm * office address--[facility] [address]. phone # [phone] Pending Studies at Discharge: No Stand-Alone Forms: My [facility], Smoking Cessation Medications and DC Order Prescriptions: New levofloxacin 750 mg tablet 750 mg PO DAILY 10 Days Qty: 10 0RF metronidazole 500 mg tablet 500 mg PO TID Qty: 30 0RF oxycodone 5 mg tablet 5 - 10 mg PO TID PRN (Reason: pain) Qty: 20 0RF Continued rosuvastatin 5 mg tablet 5 mg PO DAILY Qty: 30 2RF cholecalciferol (vitamin D3) 125 mcg (5,000 unit) capsule 125 mcg PO DAILY venlafaxine 75 mg capsule,extended release 24hr 75 mg PO DAILY Discharge Orders: Discharge Order (Routine); Ordered 11/25/22 Ordered By: Segunod Tan/Other Patient Handouts: Abscess Drainage Admission Data Admit Date/Time: 11/22/22 17:48 Attending Provider: Perry Leija Admit Provider: John Galvan Primary Care Provider: John Sherwood Other Providers: John Galvan ; Tate Liz Other Interventions: Discharge Summary Assessment (RN) Last Done: 11/25/22 12:26 Coding Level of Care Code 35569 INP/OBS DISCH >30 MIN Diagnoses Submental abscess L02.01 Hyperlipidemia E78.5 Severe obstructive sleep apnea G47.33
== END 2022-11-25 13:27 | disposition home or self-care (01) | DRG 137 ==
LOC: ED 12:55 → 2S 17:48 → SUATTDRO 17:48 → 2S 20:18 → 1E 11-23 19:17 → 4W 11-24 19:13